=== PATIENT | male | born 1995 | race Hispanic/Latino ===

== ENCOUNTER 2018-08-22 15:42 | Emergency (ER) | payer MEDICAID, OTHER ==
[2018-08-22] MEDS ORDERED: METHYLPREDNISOLONE SOD SUCC 125MG/2ML VIAL ONE (16:04)
[2018-08-22] MEDS ORDERED: IPRATROPIUM/ALBUTEROL SULFATE 3 ML SOLUTION IH ONE ×2 (16:19→16:38)
[2018-08-22 16:37] LABS: RAPID GROUP A STREP NEGATIVE (NEGATIVE)
== END 2018-08-22 17:07 | disposition home or self-care (01) ==
LOC: EDH 15:42
DX: J18.9 Pneumonia, unspecified organism (principal); J11.1 Influenza due to unidentified influenza virus with other respiratory manifestations; Z72.0 Tobacco use
CPT/HCPCS: 71046; 87804 ×2; 87880; 94640 ×2; 96372; 99285; J2930

== ENCOUNTER 2019-01-30 07:53 | Emergency (ER) | payer SELFPAY ==
[2019-01-30] MEDS ORDERED: PREDNISONE 20 MG TABLET ONE (09:07)
[2019-01-30] MEDS ORDERED: IBUPROFEN 600 MG TABLET ONE (09:07)
[2019-01-30] MEDS ORDERED: IPRATROPIUM/ALBUTEROL SULFATE 3 ML SOLUTION IH ONE (09:13)
== END 2019-01-30 09:27 | disposition home or self-care (01) ==
LOC: EDH 07:53
DX: J20.9 Acute bronchitis, unspecified (principal); Z72.0 Tobacco use
CPT/HCPCS: 71046; 87804; 94640

== ENCOUNTER 2021-03-29 11:16 | Emergency (ER) | payer OTHER | END 2021-03-29 13:47 | disposition home or self-care (01) | LOC: EDH 11:16 | DX: S00.03XA Contusion of scalp, initial encounter (principal); Z72.0 Tobacco use; W22.8XXA Striking against or struck by other objects, initial encounter; Y93.89 Activity, other specified; Y92.89 Other specified places as the place of occurrence of the external cause; Y99.8 Other external cause status | CPT/HCPCS: 70450; 72040 ==

== ENCOUNTER 2021-12-03 23:07 | Emergency (ER) | payer OTHER ==
[~2021-12-03] VITALS: Ht 167.6 cm; Wt 106.6 kg
[2021-12-03] MEDS ORDERED: IBUPROFEN 600 MG TABLET PO ONE (23:30)
[2021-12-04] MEDS ORDERED: DEXAMETHASONE 4 MG TAB ONE (00:01)
[2021-12-04 00:13] VITALS: BP 125/79
[2021-12-04] MEDS ORDERED: ZINC50TA71 PO (00:16)
[2021-12-04] MEDS ORDERED: ACET-2123 PO (00:16)
[2021-12-04] MEDS ORDERED: ASCO500V11 IJ (00:16)
[2021-12-04] MEDS ORDERED: ASCO500T10 PO (00:26)
== END 2021-12-04 00:33 | disposition home or self-care (01) ==
LOC: EDH 23:07
DX: U07.1 COVID-19 (principal); J06.9 Acute upper respiratory infection, unspecified
CPT/HCPCS: 87635; 87804 ×2; 87880; 99283; C9803; J8540

== ENCOUNTER 2025-01-27 11:13 | Emergency (ER) | payer SELFPAY ==
[~2025-01-27] VITALS: Ht 167.6 cm; Wt 99.8 kg
[~2025-01-27 11:13] MED LIST: ACET-2123 PO; ASCO500T10 PO; ASCO500V11 IJ; ZINC50TA71 PO
[2025-01-27] MEDS: ondanSETRON 4MG INJ IVP ONE (12:32)
[2025-01-27] MEDS: 0.9%NACL 1000ML 1,000 ML IV ONE (12:33)
[2025-01-27] MEDS: morPHINE 4 MG SYG IVP ONE (12:33)
[2025-01-27 12:53] LABS: BASOPHILS # (AUTO) 0.03 K/uL (0.00-0.20); BASOPHILS % (AUTO) 0.2 % (0.0-5.0); EOSINOPHILS # (AUTO) 0.08 K/uL (0.00-0.70); EOSINOPHILS % (AUTO) 0.7 % (0.0-8.0); HEMATOCRIT 48.3 % (42-54); IMMATURE GRANULOCYTE ABSOLUTE 0.03 K/uL (0-1); LYMPHOCYTES # (AUTO) 2.1 K/uL (1.0-4.8); LYMPHOCYTES % (AUTO) 17.1 % (21.0-51.0); MEAN CORPUSCULAR HEMOGLOBIN 29.4 pg (27.0-33.0); MEAN CORPUSCULAR VOLUME 86.6 fL (79-99); MONOCYTES # (AUTO) 0.9 K/uL (0.1-1.0); NEUTROPHILS # (AUTO) 9.2 K/uL (1.8-7.7); NEUTROPHILS % (AUTO) 74.8 % (40.0-77.0); PLATELET COUNT (AUTO) 284 K/uL (130-400); RED BLOOD CELL COUNT(AUTO) 5.58 MIL/uL (4.50-6.20); RED CELL DISTRIBUTION WIDTH 12.6 % (11.0-15.5); WHITE BLOOD COUNT (AUTO) 12.3 K/uL (4.8-10.8)
[2025-01-27 12:58] LABS: POTASSIUM 3.3 mmol/L (3.5-5.1)
[2025-01-27 13:02] LABS: ALBUMIN 4.3 g/dL (3.5-5.0); BILIRUBIN,DIRECT 0.2 mg/dL (0.0-0.3); BILIRUBIN,TOTAL 1.3 mg/dL (0.2-1.0); TOTAL PROTEIN, SERUM 8.6 g/dL (6.0-8.3)
--- NOTE | 2025-01-27 13:08 | ERN ---
ED Note History of Present Illness Stated Complaint: ABD PAIN X 3 DAYS Chief Complaint: Abdominal Pain Time Seen by MD: 11:27 Dictation: 29-year-old male presents to the ED for evaluation of left lower quadrant abdominal pain onset 3 days ago. Patient reports abdominal cramping, blood in stool, constipation and states his pain radiates to his lower back. Patient reports history of IBS stating that he usually has flare-ups but not as bad as today. Patient has not been seen by GI. Allergies: Coded Allergies: No Known Allergies (Unverified Allergy, Unknown, 03/29/21) Home Meds Active Scripts Dicyclomine HCl (Bentyl) 20 Mg Tab, 1 TAB PO TID for irritable bowel symptoms for 10 Days, #30 TAB 0 Refills Prov:WALE MACARIO MD 01/27/25 Metronidazole (Flagyl) 375 Mg Capsule, 1 CAP PO BID for 7 Days, #14 CAP 0 Refills Prov:WALE MACARIO MD 01/27/25 Ondansetron (Ondansetron Odt) 4 Mg Tab.rapdis, 1 TAB PO Q6HPRN PRN for naus ea/vomiting for 4 Days, #16 TAB 0 Refills Prov:WALE MACARIO MD 01/27/25 Ascorbic Acid (Ascorbic Acid) 500 Mg Tablet, 500 MG PO DAILY, #15 TAB Prov:BRIA GUEVARA Jr. [facility] 12/04/21 Zinc (Zinc) 50 Mg Tablet, 50 MG PO BID, #30 TAB Prov:BRIA GUEVARA Jr. [facility] 12/04/21 Ascorbic Acid (Ascorbic Acid) 500 Mg/1 Ml Vial, 500 MG IJ DAILY, #15 VIAL Prov:BRIA GUEVARA Jr. [facility] 12/04/21 Acetaminophen (Acetaminophen Extra Strength) 500 Mg Tablet, 500 MG PO Q4HPRN, #60 TAB Prov:BRIA GUEVARA Jr. [facility] 12/04/21 Past Medical History Past Medical History: IBS Additional Past Medical Hx: Obesity Surgical History: None Social History: Smokers, Drugs, ETOH, Lives with family Review of System Dictation Constitutional: Negative for fever,chills, and weight loss Eyes: Negative for injury, pain,redness, and discharge ENT: Negative for injury,pain or swelling Cardiovascular: Negative for chest pain, palpitations, and edema Respiratory: Negative for shortness of breath, cough, and wheezing, Abdomen/GI: Positive for abdominal pain, cramping, blood in stool, constipation but denies any vomiting Back: Negative for injury and pain : Negative for injury, bleeding and discharge MS/Extremity: Negative for injury and deformity Skin: Negative for rash, and discoloration Neuro: Negative for headache, weakness, numbness, tingling, and seizure Psych: Negative for suicide ideation, homicidal ideation, and hallucinations Initial Vital Sign VS Vital Signs Date Time Temp Pulse Resp B/P (MAP) Pulse Ox O2 Delivery O2 Flow Rate FiO2 01/27/25 11:44 98.2 111 20 127/88 99 Room Air Physical Exam Dictation General: awake, alert, NAD Head/Face: Normocephalic, atraumatic Eyes: PERRL, EOMI, vision at baseline ENT: oral cavity clear, TMs clear, no signs of infection Neck: Trachea midline, supple, no nuchal rigidity Cardiovascular: RRR, normal S1/S2, No MRGs, no JVD Respiratory: CTAB, no respiratory distress, No rales or wheezes Abdomen: Left lower quadrant tenderness, non-distended, normal bowel sounds, no guarding or rebound. Skin: Warm, dry, normal turgor, no rash MS/Extremity: Pulses equal, no cyanosis, neurovascular intact, FROM Neuro: COAx4, GCS 15, strength 5/5, CN 2-12 intact, normal cerebellar exam, normal gait, Psych: Normal behavior, mood, and affect normal Results (Laboratory/Radiology) Laboratory/Radiology Laboratory Tests Test 01/27/25 12:13 01/27/25 13:58 White Blood Count 12.3 K/uL (4.8-10.8) H Red Blood Count 5.58 MIL/uL (4.50-6.20) Hemoglobin 16.4 g/dL (14.0-18.0) Hematocrit 48.3 % (42-54) Mean Corpuscular Volume 86.6 fL (79-99) Mean Corpuscular Hemoglobin 29.4 pg (27.0-33.0) Mean Corpuscular Hemoglobin Concent 34.0 g/dL (32.0-36.0) Red Cell Distribution Width 12.6 % (11.0-15.5) Platelet Count 284 K/uL (130-400) Mean Platelet Volume 11.0 fL (7.5-10.5) H Immature Granulocyte % (Auto) 0.2 % (0-1) Neutrophils (%) (Auto) 74.8 % (40.0-77.0) Lymphocytes (%) (Auto) 17.1 % (21.0-51.0) L Monocytes (%) (Auto) 7.0 % (3.0-13.0) Eosinophils (%) (Auto) 0.7 % (0.0-8.0) Basophils (%) (Auto) 0.2 % (0.0-5.0) Neutrophils # (Auto) 9.2 K/uL (1.8-7.7) H Lymphocytes # (Auto) 2.1 K/uL (1.0-4.8) Monocytes # (Auto) 0.9 K/uL (0.1-1.0) Eosinophils # (Auto) 0.08 K/uL (0.00-0.70) Basophils # (Auto) 0.03 K/uL (0.00-0.20) Absolute Immature Granulocyte (auto 0.03 K/uL (0-1) Nucleated Red Blood Cells 0.0 % (0.0-0.19) Sodium Level 138 mmol/L (136-145) Potassium Level 3.3 mmol/L (3.5-5.1) L Chloride Level 101 mmol/L (101-111) Carbon Dioxide Level 29 mmol/L (21-32) Blood Urea Nitrogen 14 mg/dL (7-18) Creatinine 1.0 mg/dL (0.5-1.3) Glomerular Filtration Rate Calc 106 mL/min (>90) Random Glucose 109 mg/dL (70-105) H Total Calcium 9.7 mg/dL (8.5-10.1) Total Bilirubin 1.3 mg/dL (0.2-1.0) H Direct Bilirubin 0.2 mg/dL (0.0-0.3) Aspartate Amino Transf (AST/SGOT) 23 U/L (10-37) Alanine Aminotransferase (ALT/SGPT) 55 U/L (12-78) Alkaline Phosphatase 74 U/L (50-136) Total Protein 8.6 g/dL (6.0-8.3) H Albumin 4.3 g/dL (3.5-5.0) Lipase 44 U/L (16-77) Urine Color YELLOW (YELLOW) Urine Appearance CLEAR (CLEAR) Urine pH 6.0 (5.0-8.0) Urine Specific [place] 1.018 (1.001-1.031) Urine Protein NEGATIVE mg/dL (NEGATIVE) Urine Glucose (UA) NEGATIVE mg/dL (NEGATIVE) Urine Ketones 40 mg/dL (NEGATIVE) H Urine Occult Blood SMALL (NEGATIVE) H Urine Nitrate NEGATIVE (NEGATIVE) Urine Bilirubin NEGATIVE mg/dL (NEGATIVE) Urine Urobilinogen 0.2 mg/dL (0.2-1.0) Urine Leukocyte Esterase NEGATIVE Jesús/uL Urine RBC 11-25 /HPF (0-1) H Urine WBC 0-1 /HPF (0-1) Urine Squamous Epithelial Cells RARE /HPF (0-2) Urine Bacteria Few /HPF (None Seen) Labs Reviewed?: Yes CT Scan Comment: REASON: LLQ pain ORDERING PHYSICIAN: WALE MACARIO MD PROCEDURE: ABD PELVWO - CT ABD/PEL WO CON RENAL/APPY CT ABD/PEL WO CON RENAL/APPY HISTORY: Abdominal pain COMPARISON: None TECHNIQUE: Multiple sequential axial images of the abdomen and pelvis were obtained from the dome of the diaphragm through symphysis pubis. Patient was not given contrast through intravenous route. Oral contrast was not given. FINDINGS: No pleural effusion is seen bilaterally. There is no evidence of parenchymal disease or pulmonary nodule of the visualized lower lungs. Degenerative changes of the thoracolumbar spine are present. The heart is not enlarged. The liver is enlarged with fatty changes measuring 19. The study is limited due to lack of intravenous contrast. Liver, spleen, adrenal glands and pancreas are unremarkable. There is no evidence of hydronephrosis bilaterally. No evidence of renal stone is seen. Fecal material is seen in the colon. There are normal size retroperitoneal and mesenteric lymph nodes. No ascites is seen. Atherosclerotic changes are present. There is diverticulosis. There is sigmoid colon wall thickening with adjacent fat stranding suggestive of acute sigmoid diverticulitis. No focal abscess is seen. Pelvic sidewalls are symmetric bilaterally. Bladder is poorly distended. IMPRESSION: 1. There is diverticulosis. There is sigmoid colon wall thickening with adjacent fat stranding suggestive of acute sigmoid diverticulitis. No focal abscess is seen. CT was performed with one or more following dose reduction techniques: automated exposure control, adjustment of the mA and kv according to patient's size, or use of a iterative reconstruction technique. DICTATED BY: CHERRY ANTHONY MD DATE: 01/27/25 1422 ED Course ED Course Orders Procedure Category Date Status Time Cbc With Differential LAB 01/27/25 Complete 11:56 Hepatic Function Panel LAB 01/27/25 Complete 11:56 Basic Metabolic Panel LAB 01/27/25 Complete 11:56 Lipase LAB 01/27/25 Complete 11:56 Urinalysis Profile LAB 01/27/25 Complete 11:56 Morphine 4mg Syg PHA 01/27/25 Complete (Morphine 4mg Syg) 12:30 Ondansetron 4mg Inj PHA 01/27/25 Complete (Zofran 4mg Inj) 12:30 0.9%Nacl 1000ml (Ns PHA 01/27/25 Complete 1000ml) 12:30 Ct Abd/Pel Wo Con CT 01/27/25 Resulted Renal/Appy 12:18 Ceftriaxone 1g Vial PHA 01/27/25 Complete (Rocephine 1g Inj) 15:30 Ketorolac PHA 01/27/25 In Process Tromethamine 15mg/Ml 16:00 Ketorolac PHA 01/27/25 Complete Tromethamine 15mg/Ml 15:44 Current Medications Medications (Trade) Dose Ordered Sig/Miguel Angel Route PRN Reason Start Time Stop Time Status Last Admin Dose Admin Ceftriaxone Sodium (ROCEphine 1G INJ) 1 gm ONCE ONCE IVPB 01/27/25 15:30 01/27/25 15:31 DC 01/27/25 15:25 Ketorolac Tromethamine (toRADol) 15 mg ONCE ONCE IV 01/27/25 16:00 01/27/25 16:01 Ketorolac Tromethamine (toRADol) 15 mg STK-MED ONCE .ROUTE 01/27/25 15:44 01/27/25 15:44 DC Morphine Sulfate (morPHINE 4MG SYG) 4 mg ONCE ONCE IVP 01/27/25 12:30 01/27/25 12:31 DC 01/27/25 12:33 Ondansetron HCl (zoFRAN 4MG INJ) 4 mg ONCE ONCE IVP 01/27/25 12:30 01/27/25 12:31 DC 01/27/25 12:32 Sodium Chloride 1,000 ml @ 0 mls/hr ONCE ONCE IV 01/27/25 12:30 01/27/25 12:31 DC 01/27/25 12:33 Vital Signs Date Time Temp Pulse Resp B/P (MAP) Pulse Ox O2 Delivery O2 Flow Rate FiO2 01/27/25 11:44 98.2 111 20 127/88 99 Room Air Medical Decision Making MDM MDM: Differential diagnosis: IBS, abdominal pain, diverticulitis Rationale: Tests considered and ordered secondary to shared decision making include: labs and radiology Previous outside records reviewed: Old ER visits. Risk of complication and/or morbidity or mortality of patient management: None Medications-Per medication reconciliation Need for hospitalization: Patient does not meet criteria for hospitalization. Need for emergency major/minor surgery: No There are no social concerns with this patient. Prescription drug management Prescriptions will include symptomatic care Patient's prior external medical records from other ER visits were reviewed by me as indicated. Prior testing and results from previous visits were reviewed. Prior tests were taken into account with medical decision making and resource utilization, independent historian/historians were used to obtain complete medical history. I independently interpreted the test that were performed, results were reviewed by me and considered findings on radiology if ordered. DX & DISP Disposition: Discharge Departure Impression: Primary Impression: Acute diverticulitis Condition: Stable Scripts Dicyclomine HCl (Bentyl) 20 Mg Tab 1 TAB PO TID for irritable bowel symptoms for 10 Days, #30 TAB 0 Refills Prov: WALE MACARIO MD 01/27/25 Metronidazole (Flagyl) 375 Mg Capsule 1 CAP PO BID for 7 Days, #14 CAP 0 Refills Prov: WALE MACARIO MD 01/27/25 Ondansetron (Ondansetron Odt) 4 Mg Tab.rapdis 1 TAB PO Q6HPRN PRN for nausea/vomiting for 4 Days, #16 TAB 0 Refills Prov: WALE MACARIO MD 01/27/25 Referrals: NONE (PCP) WALE MACARIO MD Jan 27, 2025 13:08
[2025-01-27 14:10] LABS: APPEARANCE,URINE CLEAR (CLEAR); BILIRUBIN,URINE NEGATIVE (NEGATIVE); COLOR,URINE YELLOW (YELLOW); GLUCOSE, URINE (UA) NEGATIVE (NEGATIVE); KETONES,URINE 40 mg/dL (NEGATIVE); LEUKOCYTE ESTERASE ,URINE NEGATIVE Leu/uL (NEGATIVE); NITRATE,URINE NEGATIVE (NEGATIVE); OCCULT BLOOD,URINE SMALL (NEGATIVE); PROTEIN,URINE NEGATIVE (NEGATIVE); UROBILINOGEN,URINE 0.2 mg/dL (0.2-1.0)
[2025-01-27 14:14] LABS: ADD UA MICROSCOPIC YES
[2025-01-27 14:17] LABS: MUCUS,URINE RARE LPF (None Seen); SQUAMOUS EPITHELIAL CELL,UR RARE /HPF (0-2); WBC,URINE 0-1 /HPF (0-1)
[2025-01-27 14:25] LABS: BACTERIA,URINE Few /HPF (None Seen)
--- NOTE | 2025-01-27 14:26 | HMCIMG ---
CT ABD/PEL WO CON RENAL/APPY HISTORY: Abdominal pain COMPARISON: None TECHNIQUE: Multiple sequential axial images of the abdomen and pelvis were obtained from the dome of the diaphragm through symphysis pubis. Patient was not given contrast through intravenous route. Oral contrast was not given. FINDINGS: No pleural effusion is seen bilaterally. There is no evidence of parenchymal disease or pulmonary nodule of the visualized lower lungs. Degenerative changes of the thoracolumbar spine are present. The heart is not enlarged. The liver is enlarged with fatty changes measuring 19. The study is limited due to lack of intravenous contrast. Liver, spleen, adrenal glands and pancreas are unremarkable. There is no evidence of hydronephrosis bilaterally. No evidence of renal stone is seen. Fecal material is seen in the colon. There are normal size retroperitoneal and mesenteric lymph nodes. No ascites is seen. Atherosclerotic changes are present. There is diverticulosis. There is sigmoid colon wall thickening with adjacent fat stranding suggestive of acute sigmoid diverticulitis. No focal abscess is seen. Pelvic sidewalls are symmetric bilaterally. Bladder is poorly distended. IMPRESSION: 1. There is diverticulosis. There is sigmoid colon wall thickening with adjacent fat stranding suggestive of acute sigmoid diverticulitis. No focal abscess is seen. CT was performed with one or more following dose reduction techniques: automated exposure control, adjustment of the mA and kv according to patient's size, or use of a iterative reconstruction technique.
[2025-01-27] MEDS: cefTRIAXone 1G VIAL IVPB ONE (15:25)
[2025-01-27] MEDS ORDERED: DICY20TA2 PO (15:45)
[2025-01-27] MEDS ORDERED: METR375C2 PO (15:45)
[2025-01-27] MEDS ORDERED: ONDA-243 PO (15:45)
[2025-01-27] MEDS: ketOROlac 15MG/ML VIAL (15MG/ML) IV ONE (15:51)
[2025-01-27] MEDS: ketOROlac 15MG/ML VIAL (15MG/ML) ONE (15:52)
[2025-01-27 15:56] VITALS: BP 121/80; PULSE 88; RESP 20; TEMP 98.3; O2SAT 99
== END 2025-01-27 16:10 | disposition home or self-care (01) ==
LOC: EDH 11:13
DX: K57.32 Diverticulitis of large intestine without perforation or abscess without bleeding (principal); E66.9 Obesity, unspecified; F17.200 Nicotine dependence, unspecified, uncomplicated; Z68.35 Body mass index [BMI] 35.0-35.9, adult; Z79.899 Other long term (current) drug therapy
CPT/HCPCS: 99285; 74176; 96365; 96375; 96361; 80076; 80048; 83690; 85025; 81001; 36415; J1885; J7030; J0696; J2405; J2270

== ENCOUNTER 2025-09-06 12:03 | Inpatient (IN) | payer SELFPAY ==
[~2025-09-06] VITALS: Ht 167.6 cm; Wt 116.6 kg
[~2025-09-06 12:03] MED LIST changes: +DICY20TA2 PO; +METR375C2 PO; +ONDA-243 PO
--- NOTE | 2025-09-06 12:14 | ERN ---
ED Note History of Present Illness Stated Complaint: LLQ PAIN, NAUSEA Chief Complaint: Abdominal Pain Time Seen by MD: 12:05 Dictation: PATIENT IS A 30-YEAR-OLD MALE COMING IN TODAY WITH COMPLAINTS OF LEFT UPPER AND LOWER QUADRANT PAIN TENDERNESS WITH NAUSEA HE HAS HAD FOR FIVE DAYS. NO FEVER NO CHILLS NO CHEST PAIN NO BACK PAIN. HE STATES HE HAS NOT HAD A PRIMARY CARE DOCTOR AND DID NOT GO TO THE HOSPITAL TODAY BECAUSE HE WAS TOO BUSY WORKING. Allergies: Coded Allergies: No Known Allergies (Unverified Allergy, Unknown, 03/29/21) Home Meds Active Scripts Dicyclomine HCl (Bentyl) 20 Mg Tab, 1 TAB PO TID for irritable bowel symptoms for 10 Days, #30 TAB 0 Refills Prov:WALE MACARIO MD 01/27/25 Metronidazole (Flagyl) 375 Mg Capsule, 1 CAP PO BID for 7 Days, #14 CAP 0 Refills Prov:WALE MACARIO MD 01/27/25 Ondansetron (Ondansetron Odt) 4 Mg Tab.rapdis, 1 TAB PO Q6HPRN PRN for nausea/vomiting for 4 Days, #16 TAB 0 Refills Prov:WALE MACARIO MD 01/27/25 Ascorbic Acid (Ascorbic Acid) 500 Mg Tablet, 500 MG PO DAILY, #15 TAB Prov:BRIA GUEVARA Jr. [facility] 12/04/21 Zinc (Zinc) 50 Mg Tablet, 50 MG PO BID, #30 TAB Prov:BRIA GUEVARA Jr. [facility] 12/04/21 Ascorbic Acid (Ascorbic Acid) 500 Mg/1 Ml Vial, 500 MG IJ DAILY, #15 VIAL Prov:BRIA GUEVARA Jr. [facility] 12/04/21 Acetaminophen (Acetaminophen Extra Strength) 500 Mg Tablet, 500 MG PO Q4HPRN, #60 TAB Prov:BRIA GUEVARA Jr. [facility] 12/04/21 Past Medical History Past Medical History: Diverticulosis, IBS Additional Past Medical Hx: Obesity Surgical History: None Social History: Smokers, Drugs, ETOH, Lives with family RN Note Reviewed/Agreed w/PFSH: Yes Review of System Dictation CONSTITUTIONAL: NEGATIVE EXCEPT FOR HPI HEAD/FACE: NEGATIVE EXCEPT FOR HPI EENT: NEGATIVE EXCEPT FOR HPI RESPIRATORY: NEGATIVE EXCEPT FOR HPI GASTROINTESTINAL/ABDOMINAL: NEGATIVE EXCEPT FOR HPI LEFT UPPER AND LOWER QUADRANT GENITOURINARY: NEGATIVE EXCEPT FOR HPI MUSCULOSKELETAL: NEGATIVE EXCEPT FOR HPI INTEGUMENTARY: NEGATIVE EXCEPT FOR HPI NEUROLOGICAL/PSYCH: NEGATIVE EXCEPT FOR HPI HEMATOLOGIC/LYMPHATIC: NEGATIVE EXCEPT FOR HPI ALL SYSTEMS NEGATIVE, EXCEPT NOTED ABOVE. 13 POINT REVIEW OF SYSTEMS ASSESSED AND ALL NEGATIVE EXCEPT FOR ABOVE. Initial Vital Sign VS Vital Signs Date Time Temp Pulse Resp B/P (MAP) Pulse Ox O2 Delivery O2 Flow Rate FiO2 09/06/25 12:04 98.2 92 16 120/87 97 Room Air 0 09/06/25 13:22 21 Physical Exam Dictation VITAL SIGNS REVIEWED GENERAL APPEARANCE: ALERT, ORIENTED X 3, MODERATE ACUTE DISTRESS, WELL DEV ELOPED, NOURISHED. HEAD AND FACE: NON-TRAUMATIC. EYES: PERRL, PINK CONJUNCTIVAS, EYELID NO TRAUMA, ANTERIOR CHAMBER WITH ARCUS SENILIS. EARS: PINNAS INTACT AND NO SIGNS OF TRAUMA OR ERYTHEMA EAR CANALS CLEAR AND NO DISCHARGE TM NO ERYTHEMA NOSE: NO DISCHARGE, NO BLEEDING. OROPHARYNX: MOUTH NORMAL, TONGUE PINK, PHARYNX CLEAR,NO ERYTHEMA, TONSILS NO EXUDATES, NO ABSCESSES NOTED, MUCOUS MEMBRANE MOIST NECK: SUPPLE, NON-TENDER, NO THYROMEGALY, NO MASSES, NO JVD, NO BRUITS BREAST:DEFERRED CHEST:NO TENDERNESS, NO CREPITUS, NO PARADOXICAL MOVEMENT, NO RETRACTIONS LUNGS:CLEAR, WELL-VENTILATED, SYMMETRIC, NO RALES, NO WHEEZING, NO RHONCHI, NO STRIDOR, GOOD BREATH SOUNDS BILATERALLY HEART: REGULAR RATE, REGULAR RHYTHM, NO MURMUR, NO GALLOPS VASCULAR: NO PERIPHERAL EDEMA, ABDOMEN: SOFT, POSITIVE BOWEL SOUNDS, NONDISTENDED, NO GUARDING, MODERATE LEFTOVER AND LOWER QUADRANT PAIN TENDERNESS. RECTAL: DEFERRED GENITAL: DEFERRED NEUROLOGICAL: NORMAL SPEECH, MOTOR FUNCTION INTACT, SENSORY FUNCTION INTACT MUSCULOSKELETAL: NECK NONTENDER, FULL RANGE OF MOTION, BACK NONTENDER, FULL RANGE OF MOTION, EXTREMITIES: NONTENDER, FULL RANGE OF MOTION SKIN: COLOR PINK, DRY, NO TURGOR, NO RASH, NO LACERATIONS, NO ABRASIONS, NO CONTUSIONS. LYMPHATIC: DEFERRED Results (Laboratory/Radiology) Laboratory/Radiology Laboratory Tests Test 09/06/25 12:36 09/06/25 13:25 09/06/25 14:15 White Blood Count 13.3 K/uL (4.8-10.8) H Red Blood Count 4.79 MIL/uL (4.50-6.20) Hemoglobin 14.4 g/dL (14.0-18.0) Hematocrit 42.1 % (42-54) Mean Corpuscular Volume 87.9 fL (79-99) Mean Corpuscular Hemoglobin 30.1 pg (27.0-33.0) Mean Corpuscular Hemoglobin Concent 34.2 g/dL (32.0-36.0) Red Cell Distribution Width 12.1 % (11.0-15.5) Platelet Count 297 K/uL (130-400) Mean Platelet Volume 10.4 fL (7.5-10.5) Immature Granulocyte % (Auto) 0.4 % (0-1) Neutrophils (%) (Auto) 77.2 % (40.0-77.0) H Lymphocytes (%) (Auto) 15.4 % (21.0-51.0) L Monocytes (%) (Auto) 5.2 % (3.0-13.0) Eosinophils (%) (Auto) 1.4 % (0.0-8.0) Basophils (%) (Auto) 0.4 % (0.0-5.0) Neutrophils # (Auto) 10.3 K/uL (1.8-7.7) H Lymphocytes # (Auto) 2.1 K/uL (1.0-4.8) Monocytes # (Auto) 0.7 K/uL (0.1-1.0) Eosinophils # (Auto) 0.19 K/uL (0.00-0.70) Basophils # (Auto) 0.05 K/uL (0.00-0.20) Absolute Immature Granulocyte (auto 0.05 K/uL (0-1) Nucleated Red Blood Cells 0.0 % (0.0-0.19) Sodium Level 142 mmol/L (136-145) Potassium Level 4.2 mmol/L (3.5-5.1) Chloride Level 105 mmol/L (101-111) Carbon Dioxide Level 28 mmol/L (21-32) Blood Urea Nitrogen 12 mg/dL (7-18) Creatinine 0.9 mg/dL (0.5-1.3) Glomerular Filtration Rate Calc 119 mL/min (>90) Random Glucose 115 mg/dL (70-105) H Total Calcium 9.1 mg/dL (8.5-10.1) Lipase 43 U/L (16-77) Urine Color YELLOW (YELLOW) Urine Appearance CLEAR (CLEAR) Urine pH 6.0 (5.0-8.0) Urine Specific [place] 1.039 (1.001-1.031) Urine Protein 20 mg/dL (NEGATIVE) H Urine Glucose (UA) NEGATIVE mg/dL (NEGATIVE) Urine Ketones NEGATIVE mg/dL (NEGATIVE) Urine Occult Blood MODERATE (NEGATIVE) H Urine Nitrate NEGATIVE (NEGATIVE) Urine Bilirubin NEGATIVE mg/dL (NEGATIVE) Urine Urobilinogen 0.2 mg/dL (0.2-1.0) Urine Leukocyte Esterase NEGATIVE Jesús/uL Urine RBC 26-50 /HPF (0-1) H Urine WBC 0-1 /HPF (0-1) Urine Bacteria None /HPF (None Seen) Lactic Acid Level 1.2 mmol/L (0.8-2.5) Labs Reviewed?: Yes ED Course ED Course Orders Procedure Category Date Status Time Cbc With Differential LAB 09/06/25 Complete 12:12 Urinalysis Profile LAB 09/06/25 Complete 12:12 Ct Abdomen/Pelvis CT 09/06/25 Resulted W/Contrast 12:12 0.9%Nacl 1000ml (Ns PHA 09/06/25 Complete 1000ml) 12:30 Ondansetron 4mg Inj PHA 09/06/25 Complete (Zofran 4mg Inj) 12:30 Lipase LAB 09/06/25 Complete 12:12 Basic Metabolic Panel LAB 09/06/25 Complete 12:12 Morphine 4mg Syg PHA 09/06/25 Complete (Morphine 4mg Syg) 12:30 Iohexol (Omnipaque) PHA 09/06/25 Complete 13:18 Zosyn 3.375gm+Ns 50ml PHA 09/06/25 Complete (Zosyn 3.375gm+Ns 14:00 Blood Cult TANYA 09/06/25 In Process 14:00 Lactic Acid LAB 09/06/25 Complete 14:00 Morphine 4mg Syg PHA 09/06/25 Complete (Morphine 4mg Syg) 14:30 Current Medications Medications (Trade) Dose Ordered Sig/Miguel Angel Route PRN Reason Start Time Stop Time Status Last Admin Dose Admin Iohexol (Omnipaque) 35,000 mg STK-MED ONCE IV 09/06/25 13:18 09/06/25 13:18 DC Morphine Sulfate (morPHINE 4MG SYG) 2 mg ONCE ONCE IVP 09/06/25 12:30 09/06/25 12:31 DC 09/06/25 13:53 Morphine Sulfate (morPHINE 4MG SYG) 2 mg ONCE ONCE IVP 09/06/25 14:30 09/06/25 14:31 DC Ondansetron HCl (zoFRAN 4MG INJ) 4 mg ONCE ONCE IVP 09/06/25 12:30 09/06/25 12:31 DC 09/06/25 13:53 Piperacillin Sod/ Tazobactam Sod (Zosyn 3.375gm+NS 50ml) 3.375 gm ONCE STAT IVPB 09/06/25 14:00 09/06/25 14:03 DC 09/06/25 14:24 Sodium Chloride 1,000 ml @ 0 mls/hr ONCE ONCE IV 09/06/25 12:30 09/06/25 12:31 DC 09/06/25 13:53 Vital Signs Date Time Temp Pulse Resp B/P (MAP) Pulse Ox O2 Delivery O2 Flow Rate FiO2 09/06/25 13:22 98.2 80 16 126/82 98 Room Air* 0 21 09/06/25 12:04 98.2 92 16 120/87 97 Room Air 0 1430/patient states pain is mildly improved with morphine however continues to have pain. He does not feel safe going home since this is the 2nd time he has had diverticulitis and does not have his insurance until the end of the week. I we will admit patient for intractable pain diverticulitis and have him follow u [id number]/SPOKE WITH ANSELMO MAK HOSPITALIST AND REVIEWED CT LABS AND INTERVENTIONS FOR PAIN SHE AGREED TO ADMIT PATIENT Medical Decision Making MDM MDM: Differential diagnosis: Appendicitis/diverticulitis this IBS life Crohn's disease/electrolyte imbalance/dehydration/UTI Rationale: Tests considered and ordered secondary to shared decision making incl ude: labs, and radiology Previous outside records reviewed: Old ER visits. Risk of complication and/or morbidity or mortality of patient management: None Medications-Per medication reconciliation Need for hospitalization: Patient does meet criteria for hospitalization. Pain management IV antibiotics possible follow up with surgery Need for emergency major/minor surgery: No There are no social concerns with this patient. Prescription drug management Prescriptions will include symptomatic care Patient's prior external medical records from other ER visits were reviewed by me as indicated. Prior testing and results from previous visits were reviewed. Prior tests were taken into account with medical decision making and resource utilization, independent historian/historians were used to obtain complete medical history. I independently interpreted the test that were performed, results were reviewed by me and considered findings on radiology if ordered. Medical management and examination interpretation discussions were had by me with other qualified healthcare professionals as indicated for the patient's care. DX & DISP Disposition: Inpatient Decision to Admit Time: 14:30 Departure Impression: Primary Impression: Acute diverticulitis Additional Impressions: Intractable abdominal pain, Hyperglycemia Condition: Stable Referrals: SELF,REFERRAL (PCP) Time of Disposition: 14:31 I have reviewed the case, and I agree with, Diagnosis and Plan TREVIN JULIAN NP Sep 06, 2025 12:14
[2025-09-06 12:46] LABS: IMMATURE GRANULOCYTE ABSOLUTE 0.05 K/uL (0-1); NUCLEATED RED BLOOD CELLS 0.0 % (0.0-0.19); PLATELET COUNT (AUTO) 297 K/uL (130-400); RED BLOOD CELL COUNT(AUTO) 4.79 MIL/uL (4.50-6.20); RED CELL DISTRIBUTION WIDTH 12.1 % (11.0-15.5); WHITE BLOOD COUNT (AUTO) 13.3 K/uL (4.8-10.8)
--- NOTE | 2025-09-06 12:51 | NUR ---
CT DELAY DUE TO PT IN LOBBY ATT
[2025-09-06 12:52] LABS: CREATININE 0.9 mg/dL (0.5-1.3); GLOMERULAR FILTR. RATE CALC 119.0 mL/min (>90); GLUCOSE,RANDOM 115.0 mg/dL (70-105); SODIUM SERUM 142.0 mmol/L (136-145); UREA NITROGEN, BLOOD 12.0 mg/dL (7-18)
[2025-09-06] MEDS ORDERED: IOHEXOL 350 MG/ML 100ML INFUS..BTL IV ONE (13:18)
[2025-09-06 13:33] LABS: APPEARANCE,URINE CLEAR (CLEAR); GLUCOSE, URINE (UA) NEGATIVE (NEGATIVE); LEUKOCYTE ESTERASE ,URINE NEGATIVE Leu/uL (NEGATIVE); NITRATE,URINE NEGATIVE (NEGATIVE); OCCULT BLOOD,URINE MODERATE (NEGATIVE)
[2025-09-06 13:35] LABS: ADD UA MICROSCOPIC YES
[2025-09-06] MEDS: 0.9%NACL 1000ML 1,000 ML IV ONE (13:53)
--- NOTE | 2025-09-06 13:53 | HMCIMG ---
EXAM: CT Abdomen and Pelvis with IV contrast CLINICAL HISTORY: SEVERE LEFT UPPER AND LOWER QUADRANT PAIN TENDERNESS. TECHNIQUE: Axial computed tomography images of the abdomen and pelvis with intravenous contrast. CONTRAST: with intravenous contrast. COMPARISON: None provided. FINDINGS: LUNG BASES: The lung bases appear clear. No pleural effusions are seen. LIVER: Fatty liver. GALLBLADDER AND BILE DUCTS: The gallbladder appears within normal limits. No radioopaque gallstones are seen. No biliary ductal dilatation is evident. PANCREAS: Unremarkable. SPLEEN: Unremarkable. ADRENAL GLANDS: Unremarkable. KIDNEYS, URETERS, AND BLADDER: The kidneys appear within normal limits. There is no hydronephrosis or hydroureter. No urinary calculi are seen. STOMACH AND BOWEL: Marked inflammatory changes in the left lower quadrant adjacent to inflamed diverticula in the proximal sigmoid colon, consistent with acute sigmoid diverticulitis. APPENDIX: Normal appendix. PERITONEUM: No free fluid. No free air. LYMPH NODES: No lymphadenopathy is evident. REPRODUCTIVE: Unremarkable as visualized. VASCULATURE: No evidence of abdominal aortic aneurysm. BONES: No aggressive appearing osseous lesion. No acute osseous pathology evident. IMPRESSION: Marked inflammatory changes in the left lower quadrant adjacent to inflamed diverticula in the proximal sigmoid colon, consistent with acute sigmoid diverticulitis. No free air, free fluid or fluid collection. /[place]
[2025-09-06] MEDS: ZOSYN 3.375GM +NS 50ML IVPB STA (14:24)
--- NOTE | 2025-09-06 14:51 | NUR ---
attempted to contact dr fish office at this time
--- NOTE | 2025-09-06 14:53 | NUR ---
abe consult completed
--- NOTE | 2025-09-06 15:30 | HP ---
[facility] HISTORY AND PHYSICAL Date of Service: Sep 06, 2025 Time of Service: 15:19 HISTORY OF PRESENT ILLNESS: [The patient is a 30-year-old male with a past medical history significant for diverticulitis, previously admitted to [facility] last month. He reports completing his prescribed antibiotic course after discharge. Approximately five days ago, he began experiencing recurrent abdominal pain localized to the left lower quadrant. Despite ongoing symptoms, he continued working due to financial constraints. Today, the pain became intolerable, prompting his visit to the emergency department. Associated symptoms include nausea (without vomiting) and anorexia. He denies fever, chills, diarrhea, constipation, hematochezia, or melena. Laboratory and Imaging Results: WBC: 13.13 x10/L (elevated) Neutrophils: 77.2% Random Glucose: 115 mg/dL CT Abdomen/Pelvis with IV contrast: Marked inflammatory changes in the left lower quadrant adjacent to inflamed diverticula in the proximal sigmoid colon, consistent with acute sigmoid diverticulitis. No free air, free fluid, or fluid collection. ED Course: Morphine 2 mg IV x2 for pain Zosyn 3.375 g IV Ondansetron 4 mg IV x1 Normal saline 1 L IV ] REVIEW OF SYSTEMS CONSTITUTIONAL: Denies fevers, chills, or night sweats. No unintentional weight loss reported. NEUROLOGICAL: Denies headache, amaurosis fugax, motor weakness, sensory deficit, vertigo/spinning sensation, gait abnormalities, or tremors. ENT: No hearing loss, otalgia, otorrhea, rhinitis, rhinorrhea, hoarseness, or sore throat. CARDIOVASCULAR: Denies any exertional angina, dyspnea on exertion, orthopnea, paroxysmal nocturnal dyspnea, palpitations, life-threatening arrhythmias, claudication. PULMONARY: Denies any shortness of breath, cough, phlegm/sputum, hemoptysis, pleuritic chest pain. SLEEP: Denies morning headaches, daytime somnolence or napping. Denies difficulty falling asleep, staying asleep, waking from sleep. Denies knowledge of snoring. GASTROINTESTINAL: Left lower quadrant abdominal pain, nausea, anorexia. No vo miting, diarrhea, constipation, hematochezia, or melena GENITOURINARY: Denies frequency, urgency, nocturia, hematuria or incontinence (Storage/Irritative symptoms.) Low urinary stream, straining to void, urinary intermittency or hesitancy, splitting of the voiding stream, terminal dribbling. ENDOCRINOLOGIC: Denies polyuria, polydipsia, polyphagia or heat/cold intolerances. HEMATOLOGIC: Denies thrombophilia/previous clots, or coagulopathy/bleeding disorders. ONCOLOGIC: Denies personal history of malignancy. DERMATOLOGIC: Denies rashes or pruritus. PSYCHIATRIC: Denies any suicidal or homicidal ideation. Denies hallucinations. PAST MEDICAL HISTORY: [Diverticulitis, morbid obesity ] PAST SURGICAL HISTORY: [Denies any surgical history ] PAST SOCIAL HISTORY: [Patient works with the [employer], smokes marijuana once in a while, decreased alcohol use to once a week on the weekends or illicit drug use reported ] FAMILY HISTORY: [Hypertension, grandfather] Coded Allergies: No Known Allergies (Unverified Allergy, Unknown, 03/29/21) PHYSICAL EXAM GENERAL APPEARANCE: The patient is awake, alert, and oriented, in no acute cardiopulmonary distress. NEUROLOGICAL: Cranial nerves II-XII grossly intact. Motor is 5/5 in bilateral upper and lower extremities proximal to distal. No sensory deficits. HEENT: Face is symmetric. Pupils are equal and reactive. Extraocular movements are intact. NECK: Supple. No JVD. No thyromegaly. No submental, submandibular, pre- /postauricular, occipital or supraclavicular lymphadenopathy. CHEST: Normal chest expansion. No Telemetry. LUNGS: Absence of any rales, rhonchi or any wheezing. CARDIOVASCULAR: Regular. S1 and S2 normal. No appreciable rubs, murmurs or gallops. ABDOMEN: Tenderness to palpation in the left lower quadrant, no rebound or guarding, no palpable masses, bowel sounds present : Deferred. No Arriaga. EXTREMITIES: Non-edematous and not cyanotic. No clubbing. Good capillary refill. SKIN: No skin breakdown. Vital Sign (Last 24 Hours) 09/06/25 14:42 Temp 98.2 Pulse 80 Resp 16 B/P (MAP) 118/80 Pulse Ox 98 O2 Delivery Room Air* O2 Flow Rate 0 FiO2 21 LABS: Laboratory: Test 09/06/25 14:15 09/06/25 13:25 09/06/25 12:36 Range/Units Lactic Acid Level 1.2 0.8-2.5 mmol/L Urine Color YELLOW YELLOW Urine Appearance CLEAR CLEAR Urine pH 6.0 5.0-8.0 Urine Specific [place] 1.039 H 1.001-1.031 Urine Protein 20 H NEGATIVE mg/dL Urine Glucose (UA) NEGATIVE NEGATIVE mg/dL Urine Ketones NEGATIVE NEGATIVE mg/dL Urine Occult Blood MODERATE H NEGATIVE Urine Nitrate NEGATIVE NEGATIVE Urine Bilirubin NEGATIVE NEGATIVE mg/dL Urine Urobilinogen 0.2 0.2-1.0 mg/dL Urine Leukocyte Esterase NEGATIVE NEGATIVE Jesús/uL Urine RBC 26-50 H 0-1 /HPF Urine WBC 0-1 0-1 /HPF Urine Bacteria None None Seen /HPF White Blood Count 13.3 H 4.8-10.8 K/uL Red Blood Count 4.79 4.50-6.20 MIL/uL Hemoglobin 14.4 14.0-18.0 g/dL Hematocrit 42.1 42-54 % Mean Corpuscular Volume 87.9 79-99 fL Mean Corpuscular Hemoglobin 30.1 27.0-33.0 pg Mean Corpuscular Hemoglobin Concent 34.2 32.0-36.0 g/dL Red Cell Distribution Width 12.1 11.0-15.5 % Platelet Count 297 130-400 K/uL Mean Platelet Volume 10.4 7.5-10.5 fL Immature Granulocyte % (Auto) 0.4 0-1 % Neutrophils (%) (Auto) 77.2 H 40.0-77.0 % Lymphocytes (%) (Auto) 15.4 L 21.0-51.0 % Monocytes (%) (Auto) 5.2 3.0-13.0 % Eosinophils (%) (Auto) 1.4 0.0-8.0 % Basophils (%) (Auto) 0.4 0.0-5.0 % Neutrophils # (Auto) 10.3 H 1.8-7.7 K/uL Lymphocytes # (Auto) 2.1 1.0-4.8 K/uL Monocytes # (Auto) 0.7 0.1-1.0 K/uL Eosinophils # (Auto) 0.19 0.00-0.70 K/uL Basophils # (Auto) 0.05 0.00-0.20 K/uL Absolute Immature Granulocyte (auto 0.05 0-1 K/uL Nucleated Red Blood Cells 0.0 0.0-0.19 % Sodium Level 142 136-145 mmol/L Potassium Level 4.2 3.5-5.1 mmol/L Chloride Level 105 101-111 mmol/L Carbon Dioxide Level 28 21-32 mmol/L Blood Urea Nitrogen 12 7-18 mg/dL Creatinine 0.9 0.5-1.3 mg/dL Glomerular Filtration Rate Calc 119 >90 mL/min Random Glucose 115 H 70-105 mg/dL Total Calcium 9.1 8.5-10.1 mg/dL Lipase 43 16-77 U/L Current Medications Medications (Trade) Dose Ordered Sig/Miguel Angel Route PRN Reason Start Time Stop Time Status Last Admin Dose Admin Acetaminophen (TYLenol 325MG TAB) 650 mg Q4H PRN PO TEMPERATURE GREATER THAN 101.5 09/06/25 15:00 10/06/25 14:59 Acetaminophen (TYLenol 325MG TAB) 650 mg Q6H PRN PO MILD PAIN (1-3) 09/06/25 15:00 10/06/25 14:59 Metronidazole/ Sodium Chloride 100 ml @ 100 mls/hr Q8H6 IVPB 09/06/25 22:00 09/06/25 14:46 DC Morphine Sulfate (morPHINE 4MG SYG) 2 mg Q4H PRN IVP SEVERE PAIN (7-10) 09/06/25 15:00 09/13/25 14:59 Ondansetron HCl (zoFRAN 4MG INJ) 4 mg Q6H PRN IVP NAUSEA/VOMITING 09/06/25 15:00 10/06/25 14:59 Piperacillin Sod/ Tazobactam Sod (Zosyn 3.375gm+NS 50ml) 3.375 gm ONCE STAT IVPB 09/06/25 14:00 09/06/25 14:03 DC 09/06/25 14:24 3.375 GM Piperacillin Sod/ Tazobactam Sod (Zosyn 3.375gm+NS 50ml) 3.375 gm Q8H IV 09/06/25 22:00 09/16/25 21:59 DIAGNOSTICS / RADIOLOGY: [ ] ASSESSMENT: Acute sigmoid diverticulitis, recurrent, POA Leukocytosis, POA Mild hyperglycemia, POA Pain, acute abdominal, POA Nausea/anorexia, POA Dehydration (presumed, given poor oral intake)< POA ] PLAN: [Admit to medical-surgical floor NPO status Continue IV fluids: Normal saline at 100 mL/hour IV antibiotics: Continue Zosyn; add Flagyl (metronidazole) per protocol Order CRP and ESR Daily laboratory monitoring (CBC, BMP, glucose) Consult General Surgery for evaluation of recurrent diverticulitis Repeat labs tomorrow Initiate GI prophylaxis (e.g., PPI) Initiate DVT prophylaxis (e.g., enoxaparin unless contraindicated) Monitor for clinical improvement or signs of complication (peritonitis, abscess, perforation) Advance diet as tolerated once symptoms improve Patient is a full code Case discussed with Dr. Iraheta, above plan was formulated ] ADVANCED CARE PLANNING 1. Which of the following were discussed? Hospice Care - Yes / No Therapeutic options - Yes / No Advance Directives - Yes / No Other discussions - 2. Discussed with who? Patient 3. Voluntary nature of this service was explained to the patient? Yes / No 4. Amount of time spent - __20 mins 5. Reviewed by Physician? (if this service was performed by NPP) Yes / No ANSELMO PATEL AGPCNP Sep 06, 2025 15:30
--- NOTE | 2025-09-06 17:25 | NUR ---
DCP: HOME Pt lives alone in his parents home. Pt works at [email or web address], is independent of all his ADLS. Able to complete home management and meal prep on his own. No DME or in home care services. Pt waiting for work insurance to kick in so he can get PCP. Sw provided community resources for future use. Pt denies dc needs and will return home. ER contact is Amie Juarez [phone] Addendum: 09/06/25 at 1733 by RONALD ROME Amended: Links added.
--- NOTE | 2025-09-06 17:40 | CONS ---
CONSULT NOTE: Consulting physician:Dr Henry Consulting service: General surgery Reason for consultation: Acute diverticulitis History of present illness: This is a 30-year-old male with a known history of diverticulitis with multiple episodes of diverticulitis over the years. Patient has been able to follow up with any Surgical teams due to lack of insurance. For concerns of familiar discomfort patient finally presented to the hospital. Patient reports that pain began five days prior. Patient is familiar with the discomfort and was concerned with worsening diverticulitis. Patient is seen in the ER resting. Abdominal pain improving. Patient is currently on IV fluids and IV antibiotics. CT imaging confirming acute diverticulitis with no with no abscess or perforation Medical history: Diverticulitis, morbid obesity PAST SURGICAL HISTORY: Denies any surgical history PAST SOCIAL HISTORY: Patient works with the [employer], smokes marijuana once in a while, decreased alcohol use to once a week on the weekends or illicit drug use reported FAMILY HISTORY: Hypertension, grandfather Coded Allergies: No Known Allergies (Unverified Allergy, Unknown, 03/29/21) Review of systems: General: No Fever, No Chills, No Night Sweats, No Fatigue, No Malaise, No Appetite, No Other HEENT: No Head Aches, No Visual Changes, No Eye Pain, No Ear Pain, No Dy sphasia, No Sinus Congestion, No Post Nasal Drip, No Sore Throat, No Other Pulmonary: No Dyspnea, No Cough, No Pleuritic Chest Pain, No Other Cardiovascular: No: Chest Pain, Palpitations, Orthopnea, Paroxysmal No Dyspnea, Edema, Lt Headedness, Other Gastrointestinal: No: Nausea, Vomiting, Diarrhea, Constipation, Melena, Hematochezia, Other Genitourinary: No Dysuria, No Frequency, No Incontinence, No Hematuria, No Retention, No Other Musculoskeletal: No: other, neck pain, shoulder pain, arm pain, back pain, hand pain, leg pain, foot pain Skin: No Urticaria, No Rash, No Other Neurological: No: Weakness, Numbness, Incoordination, Change in speech, Confusion, Seizures, Other Physical exam: General: Awake alert and oriented Heart: Regular rate and rhythm} Lungs: [Clear to auscultation no distress Abdomen: [ Improving abdominal discomfort from admission Assessment: This is a 30-year-old male with concerns of acute diverticulitis Plan: At this point in time we will treat patient conservatively Patient to remain NPO Patient informed that he will likely need colonoscopy 6-8 weeks after discharge Continue with the IV fluids and IV antibiotics Dr. Forrest to be updated in patient's status and surgical team to follow patient closely Surgical case has been discussed with my supervising physician in the above plan was formulated and agreed upon Supervising physicians evaluation the patient be done within next 24 hours We appreciate the hospitalist team for us to participate in patient's care. Greater than 55 minutes of time spent patient, reviewing chart, working on documentation BRIA NAYAK Jr. Sep 06, 2025 17:40
[2025-09-06 18:25] VITALS: BP 123/66; PULSE 87; RESP 18; TEMP 98.3
[2025-09-06] MEDS: 0.9%NACL 1000ML 1,000 ML IV SCH (18:36)
[2025-09-06 20:00] VITALS: BP 104/55; PULSE 89; RESP 17; TEMP 98.6; O2SAT 98
--- NOTE | 2025-09-06 21:39 | NUR ---
PAIN CALL PLACED TO [facility]. SPOKE WITH CASSIE MAK ABOUT PATIENT'S CONTINUED COMPLAINT OF ABDOMINAL PAIN 09/10. ADVISED STILL HAS 1.5 HOURS BEFORE NEXT MORPHINE DOSE CAN BE GIVEN. PER CASSIE ANAYAP: DILAUDID 0.5MG IVP ONCE NOW. ORDERS NOTED AND CARRIED OUT.
[2025-09-06] MEDS: ZOSYN 3.375GM +NS 50ML IV SCH (21:52)
[2025-09-07] VITALS (9 sets, daily range): BP systolic 105–124; BP diastolic 60–82; PULSE 81–112; RESP 16–18; TEMP 98.1–99.4; O2SAT 96
[2025-09-07 03:46] LABS: NUCLEATED RED BLOOD CELLS 0.0 % (0.0-0.19); PLATELET COUNT (AUTO) 260.0 K/uL (130-400); RED BLOOD CELL COUNT(AUTO) 4.17 MIL/uL (4.50-6.20); RED CELL DISTRIBUTION WIDTH 12.2 % (11.0-15.5); WHITE BLOOD COUNT (AUTO) 11.1 K/uL (4.8-10.8)
[2025-09-07 04:08] LABS: ASPARTATE AMINOTRANSFERASE 17.0 U/L (10-37); CREATININE 1.0 mg/dL (0.5-1.3); GLOMERULAR FILTR. RATE CALC 105.0 mL/min (>90); GLUCOSE,RANDOM 105.0 mg/dL (70-105); SODIUM SERUM 142.0 mmol/L (136-145); TOTAL PROTEIN, SERUM 6.8 g/dL (6.0-8.3); UREA NITROGEN, BLOOD 9.0 mg/dL (7-18)
[2025-09-07 04:09] LABS: ERYTHROCYTE SEDIMENTATION RATE 41.0 MM/HR (0-15)
--- NOTE | 2025-09-07 13:15 | PN ---
[facility] PROGRESS NOTE Date of Service: Sep 07, 2025 Time of Service: 13:12 SUBJECTIVE: [30-year-old male who presented to the emergency department with severe abdominal pain. Patient was diagnosed with a sigmoid diverticulitis by CT. Patient was evaluated this morning and he complained of still tenderness to the abdomen. Pain is reduced. We will await for further recommendations from general surgeon. Patient will continue NPO status. Continue with IV fluids and IV antibiotics. WBC downtrending. ] REVIEW OF SYSTEMS CONSTITUTIONAL: Denies fevers, chills, or night sweats. No unintentional weight loss reported. NEUROLOGICAL: Denies headache, amaurosis fugax, motor weakness, sensory deficit, vertigo/spinning sensation, gait abnormalities, or tremors. ENT: No hearing loss, otalgia, otorrhea, rhinitis, rhinorrhea, hoarseness, or sore throat. CARDIOVASCULAR: Denies any exertional angina, dyspnea on exertion, orthopnea, paroxysmal nocturnal dyspnea, palpitations, life-threatening arrhythmias, claudication. PULMONARY: Denies any shortness of breath, cough, phlegm/sputum, hemoptysis, pleuritic chest pain. SLEEP: Denies morning headaches, daytime somnolence or napping. Denies difficulty falling asleep, staying asleep, waking from sleep. Denies knowledge of snoring. GASTROINTESTINAL: Left lower quadrant abdominal pain, nausea, anorexia. No vomiting, diarrhea, constipation, hematochezia, or melena GENITOURINARY: Denies frequency, urgency, nocturia, hematuria or incontinence (Storage/Irritative symptoms.) Low urinary stream, straining to void, urinary intermittency or hesitancy, splitting of the voiding stream, terminal dribbling. ENDOCRINOLOGIC: Denies polyuria, polydipsia, polyphagia or heat/cold intolerances. HEMATOLOGIC: Denies thrombophilia/previous clots, or coagulopathy/bleeding disorders. ONCOLOGIC: Denies personal history of malignancy. DERMATOLOGIC: Denies rashes or pruritus. PSYCHIATRIC: Denies any suicidal or homicidal ideation. Denies hallucinations. PHYSICAL EXAM GENERAL APPEARANCE: The patient is awake, alert, and oriented, in no acute cardiopulmonary distress. NEUROLOGICAL: Cranial nerves II-XII grossly intact. Motor is 5/5 in bilateral upper and lower extremities proximal to distal. No sensory deficits. HEENT: Face is symmetric. Pupils are equal and reactive. Extraocular movements are intact. NECK: Supple. No JVD. No thyromegaly. No submental, submandibular, pre-/postauricular, occipital or supraclavicular lymphadenopathy. CHEST: Normal chest expansion. No Telemetry. LUNGS: Absence of any rales, rhonchi or any wheezing. CARDIOVASCULAR: Regular. S1 and S2 normal. No appreciable rubs, murmurs or gallops. ABDOMEN: Tenderness to palpation in the left lower quadrant, no rebound or guarding, no palpable masses, bowel sounds present : Deferred. No Arriaga. EXTREMITIES: Non-edematous and not cyanotic. No clubbing. Good capillary refill. SKIN: No skin breakdown. Vital Signs (last 8hr) Date Time Temp Pulse Resp B/P (MAP) Pulse Ox O2 Delivery O2 Flow Rate FiO2 09/07/25 07:50 96 Room Air* 0 21 09/07/25 07:43 98.4 81 16 117/60 96 Room Air 0.0 LABS: Laboratory: Test 09/07/25 03:41 09/06/25 14:15 09/06/25 13:25 09/06/25 12:36 Range/Units White Blood Count 11.1 H 4.8-10.8 K/uL Red Blood Count 4.17 L 4.50-6.20 MIL/uL Hemoglobin 12.5 L 14.0-18.0 g/dL Hematocrit 37.2 L 42-54 % Mean Corpuscular Volume 89.2 79-99 fL Mean Corpuscular Hemoglobin 30.0 27.0-33.0 pg Mean Corpuscular Hemoglobin Concent 33.6 32.0-36.0 g/dL Red Cell Distribution Width 12.2 11.0-15.5 % Platelet Count 260 130-400 K/uL Mean Platelet Volume 10.1 7.5-10.5 fL Nucleated Red Blood Cells 0.0 0.0-0.19 % Erythrocyte Sedimentation Rate 41 H 0-15 MM/HR Sodium Level 142 136-145 mmol/L Potassium Level 3.5 3.5-5.1 mmol/L Chloride Level 106 101-111 mmol/L Carbon Dioxide Level 27 21-32 mmol/L Blood Urea Nitrogen 9 7-18 mg/dL Creatinine 1.0 0.5-1.3 mg/dL Glomerular Filtration Rate Calc 105 >90 mL/min Random Glucose 105 70-105 mg/dL Total Calcium 8.3 L 8.5-10.1 mg/dL Total Bilirubin 0.7 0.2-1.0 mg/dL Aspartate Amino Transf (AST/SGOT) 17 10-37 U/L Alanine Aminotransferase (ALT/SGPT) 39 12-78 U/L Alkaline Phosphatase 56 50-136 U/L C-Reactive Protein, Quantitative 103.60 H 0.5-3.0 mg/L Total Protein 6.8 6.0-8.3 g/dL Albumin 3.2 L 3.5-5.0 g/dL Lactic Acid Level 1.2 0.8-2.5 mmol/L Urine Color YELLOW YELLOW Urine Appearance CLEAR CLEAR Urine pH 6.0 5.0-8.0 Urine Specific [place] 1.039 H 1.001-1.031 Urine Protein 20 H NEGATIVE mg/dL Urine Glucose (UA) NEGATIVE NEGATIVE mg/dL Urine Ketones NEGATIVE NEGATIVE mg/dL Urine Occult Blood MODERATE H NEGATIVE Urine Nitrate NEGATIVE NEGATIVE Urine Bilirubin NEGATIVE NEGATIVE mg/dL Urine Urobilinogen 0.2 0.2-1.0 mg/dL Urine Leukocyte Esterase NEGATIVE NEGATIVE Jesús/uL Urine RBC 26-50 H 0-1 /HPF Urine WBC 0-1 0-1 /HPF Urine Bacteria None None Seen /HPF Immature Granulocyte % (Auto) 0.4 0-1 % Neutrophils (%) (Auto) 77.2 H 40.0-77.0 % Lymphocytes (%) (Auto) 15.4 L 21.0-51.0 % Monocytes (%) (Auto) 5.2 3.0-13.0 % Eosinophils (%) (Auto) 1.4 0.0-8.0 % Basophils (%) (Auto) 0.4 0.0-5.0 % Neutrophils # (Auto) 10.3 H 1.8-7.7 K/uL Lymphocytes # (Auto) 2.1 1.0-4.8 K/uL Monocytes # (Auto) 0.7 0.1-1.0 K/uL Eosinophils # (Auto) 0.19 0.00-0.70 K/uL Basophils # (Auto) 0.05 0.00-0.20 K/uL Absolute Immature Granulocyte (auto 0.05 0-1 K/uL Lipase 43 16-77 U/L Current Medications Medications (Trade) Dose Ordered Sig/Miguel Angel Route PRN Reason Start Time Stop Time Status Last Admin Dose Admin Acetaminophen (TYLenol 325MG TAB) 650 mg Q4H PRN PO TEMPERATURE GREATER THAN 101.5 09/06/25 15:00 10/06/25 14:59 Acetaminophen (TYLenol 325MG TAB) 650 mg Q6H PRN PO MILD PAIN (1-3) 09/06/25 15:00 10/06/25 14:59 Metronidazole/ Sodium Chloride 100 ml @ 100 mls/hr Q8H6 IVPB 09/06/25 22:00 09/06/25 14:46 DC Morphine Sulfate (morPHINE 4MG SYG) 2 mg Q4H PRN IVP SEVERE PAIN (7-10) 09/06/25 15:00 09/13/25 14:59 09/07/25 09:32 2 MG Ondansetron HCl (zoFRAN 4MG INJ) 4 mg Q6H PRN IVP NAUSEA/VOMITING 09/06/25 15:00 10/06/25 14:59 Piperacillin Sod/ Tazobactam Sod (Zosyn 3.375gm+NS 50ml) 3.375 gm ONCE STAT IVPB 09/06/25 14:00 09/06/25 14:03 DC 09/06/25 14:24 3.375 GM Piperacillin Sod/ Tazobactam Sod (Zosyn 3.375gm+NS 50ml) 3.375 gm Q8H IV 09/06/25 22:00 09/16/25 21:59 09/07/25 05:35 3.375 GM Sodium Chloride 1,000 ml @ 100 mls/hr Q10H IV 09/06/25 18:30 10/06/25 18:29 09/07/25 04:43 100 MLS/HR DIAGNOSTICS / RADIOLOGY: [ ] ASSESSMENT: Acute sigmoid diverticulitis, recurrent, POA Leukocytosis, POA Mild hyperglycemia, POA Pain, acute abdominal, POA Nausea/anorexia, POA Dehydration (presumed, given poor oral intake)< POA ] PLAN: [Admit to medical-surgical floor Continue NPO status Continue IV fluids: Normal saline at 100 mL/hour IV antibiotics: Continue Zosyn; add Flagyl (metronidazole) per protocol Order CRP and ESR Daily laboratory monitoring (CBC, BMP, glucose) Consult General Surgery for evaluation of recurrent diverticulitis Repeat labs tomorrow Initiate GI prophylaxis (e.g., PPI) Initiate DVT prophylaxis (e.g., enoxaparin unless contraindicated), patient is young and ambulatory SCD we will suffice Monitor for clinical improvement or signs of complication (peritonitis, abscess, perforation) Advance diet as tolerated once symptoms improve Patient is a full code Case discussed with Dr. Iraehta, above plan was formulated ] ATTESTATION BY PHYSICIAN I have seen and examined the patient. I reviewed the documentation, medical decision making, and treatment plan as noted by the mid-level provider above. I agree with the findings and plan of care. Velia Henry MD, [facility] Sep 07, 2025 13:15
--- NOTE | 2025-09-07 14:31 | PN ---
GENERAL SURGERY PROGRESS NOTE Date/Time Patient Seen: [ 09/07/2025 11:00 AM] Interval History: [30-year-old male, admitted for diverticulitis, no abscess or perforation Patient has been NPO since yesterday Patient states his pain still there but is decreasing WBCs downtrending to 11.1 H&H 12.5 and 37.2 ] Current Medications Medications (Trade) Dose Ordered Sig/Miguel Angel Route Start Time Stop Time Status Last Admin Dose Admin Metronidazole/ Sodium Chloride 100 ml @ 100 mls/hr Q8H6 IVPB 09/06/25 22:00 09/06/25 14:46 DC Metronidazole/ Sodium Chloride 100 ml @ 100 mls/hr Q8H6 IVPB 09/07/25 14:00 09/07/25 13:21 DC Piperacillin Sod/ Tazobactam Sod (Zosyn 3.375gm+NS 50ml) 3.375 gm ONCE STAT IVPB 09/06/25 14:00 09/06/25 14:03 DC 09/06/25 14:24 3.375 GM Piperacillin Sod/ Tazobactam Sod (Zosyn 3.375gm+NS 50ml) 3.375 gm Q8H IV 09/06/25 22:00 09/16/25 21:59 09/07/25 13:16 3.375 GM Sodium Chloride 1,000 ml @ 100 mls/hr Q10H IV 09/06/25 18:30 10/06/25 18:29 09/07/25 13:16 100 MLS/HR Physical Examination: GENERAL: [No acute distress, male, comfortably sitting up in bed.] HEAD: [Normocephalic.] EYES: [Normal conjunctiva.] ENT: [Hearing grossly intact.] NECK: [Supple.] LUNGS: [Clear breath sounds bilaterally.] HEART: [Normal rate and rhythm.] VASC: [Peripheral pulses +2 bilaterally.] ABD: [LLQ tenderness on deep palpation, Bowel sounds normal, soft, no guarding or rigidity.] : [Not examined] EXT: [No edema.] SKIN: [No rashes or lesions noted.] NEURO: [Awake, alert, and oriented x3. No focal sensory or strength deficits noted.] Vital Signs (last 8hr) Date Time Temp Pulse Resp B/P (MAP) Pulse Ox O2 Delivery O2 Flow Rate FiO2 09/07/25 07:50 96 Room Air* 0 21 09/07/25 07:43 98.4 81 16 117/60 96 Room Air 0.0 Laboratory: [ ] Hematology Labs: Test 09/07/25 03:41 09/06/25 12:36 Range/Units White Blood Count 11.1 H 4.8-10.8 K/uL Red Blood Count 4.17 L 4.50-6.20 MIL/uL Hemoglobin 12.5 L 14.0-18.0 g/dL Hematocrit 37.2 L 42-54 % Mean Corpuscular Volume 89.2 79-99 fL Mean Corpuscular Hemoglobin 30.0 27.0-33.0 pg Mean Corpuscular Hemoglobin Concent 33.6 32.0-36.0 g/dL Red Cell Distribution Width 12.2 11.0-15.5 % Platelet Count 260 130-400 K/uL Mean Platelet Volume 10.1 7.5-10.5 fL Nucleated Red Blood Cells 0.0 0.0-0.19 % Erythrocyte Sedimentation Rate 41 H 0-15 MM/HR Immature Granulocyte % (Auto) 0.4 0-1 % Neutrophils (%) (Auto) 77.2 H 40.0-77.0 % Lymphocytes (%) (Auto) 15.4 L 21.0-51.0 % Monocytes (%) (Auto) 5.2 3.0-13.0 % Eosinophils (%) (Auto) 1.4 0.0-8.0 % Basophils (%) (Auto) 0.4 0.0-5.0 % Neutrophils # (Auto) 10.3 H 1.8-7.7 K/uL Lymphocytes # (Auto) 2.1 1.0-4.8 K/uL Monocytes # (Auto) 0.7 0.1-1.0 K/uL Eosinophils # (Auto) 0.19 0.00-0.70 K/uL Basophils # (Auto) 0.05 0.00-0.20 K/uL Absolute Immature Granulocyte (auto 0.05 0-1 K/uL Chemistry Labs: Test 09/07/25 03:41 09/06/25 14:15 09/06/25 12:36 Range/Units Sodium Level 142 136-145 mmol/L Potassium Level 3.5 3.5-5.1 mmol/L Chloride Level 106 101-111 mmol/L Carbon Dioxide Level 27 21-32 mmol/L Blood Urea Nitrogen 9 7-18 mg/dL Creatinine 1.0 0.5-1.3 mg/dL Glomerular Filtration Rate Calc 105 >90 mL/min Random Glucose 105 70-105 mg/dL Total Calcium 8.3 L 8.5-10.1 mg/dL Total Bilirubin 0.7 0.2-1.0 mg/dL Aspartate Amino Transf (AST/SGOT) 17 10-37 U/L Alanine Aminotransferase (ALT/SGPT) 39 12-78 U/L Alkaline Phosphatase 56 50-136 U/L C-Reactive Protein, Quantitative 103.60 H 0.5-3.0 mg/L Total Protein 6.8 6.0-8.3 g/dL Albumin 3.2 L 3.5-5.0 g/dL Lactic Acid Level 1.2 0.8-2.5 mmol/L Lipase 43 16-77 U/L Diagnostics / Radiology: [Copy/Paste Echos/Imaging Report here] Impression and Plan: [ 30-year-old male admitted for diverticulitis without abscess or perforation Clinically, patient is doing better, reports less pain to left lower quadrant WBCs trending down Keep NPO for another 24 hours then may start on clear liquids No emergent surgical intervention at this time Continue with IV fluids and IV antibiotics Repeat labs in a.m. Dietary consult for teaching on diet to prevent diverticulitis flare-ups in the future Surgical team will continue to follow Dr. Forrest updated on patient's status Surgical case has been discussed with my supervising physician Plan of care was formulated and agreed upon We appreciate the hospitalist team for allowing us to participate in this patient's care Greater than 45 minutes spent examining patient, reviewing chart and working on documentation] ATTESTATION BY PHYSICIAN I have seen and examined the patient. I reviewed the documentation, medical decision making, and treatment plan as noted by the mid-level provider above. I agree with the findings and plan of care. MD RODRICK SCHMITZ LETICIA [facility] Sep 07, 2025 14:31
[2025-09-08 04:00] VITALS: BP_SYST 120; BP_SYST 134; BP_DIAS 69; PULSE 43; PULSE 88; RESP 18; TEMP 97.5; TEMP 98.2
[2025-09-08 06:00] LABS: IMMATURE GRANULOCYTE ABSOLUTE 0.03 K/uL (0-1); NUCLEATED RED BLOOD CELLS 0.0 % (0.0-0.19); PLATELET COUNT (AUTO) 257 K/uL (130-400); RED BLOOD CELL COUNT(AUTO) 4.16 MIL/uL (4.50-6.20); RED CELL DISTRIBUTION WIDTH 11.8 % (11.0-15.5); WHITE BLOOD COUNT (AUTO) 9.8 K/uL (4.8-10.8)
[2025-09-08 06:19] LABS: ASPARTATE AMINOTRANSFERASE 16.0 U/L (10-37); CREATININE 0.8 mg/dL (0.5-1.3); GLOMERULAR FILTR. RATE CALC 124.0 mL/min (>90); GLUCOSE,RANDOM 78.0 mg/dL (70-105); SODIUM SERUM 139.0 mmol/L (136-145); TOTAL PROTEIN, SERUM 6.6 g/dL (6.0-8.3); UREA NITROGEN, BLOOD 10.0 mg/dL (7-18)
[2025-09-08 08:15] VITALS: BP_SYST 110; BP_SYST 112; BP_DIAS 59; BP_DIAS 72; PULSE 78; RESP 16; TEMP 97.4
[2025-09-08 10:00] VITALS: O2SAT 97
[2025-09-08 11:46] VITALS: BP 131/82; PULSE 86; RESP 18; TEMP 98.4
--- NOTE | 2025-09-08 11:57 | NUR ---
Nutrition consult per diverticulitis Reviewed labs, notes, and medications. Pt with diverticulitis, abd pain + nausea, w/ financial constraints, smokes marijuana, alcohol use once a week, NPO since admin, IV fluids, Ca 8.4(L), elevated CRP, alb (L) per chart review. Wt via standing scale, liquid loose BM 09/06/25, no edema, well nourished, no wounds per nursing. Pt reported eating out often due to child with austism, no PCP, pending insurance, no MVI. RD reviewed MNT for diverticulitis, Pt verbalized understanding. Mother present during visit. Pt with PCM per BMI of 41.5. Recommendations: -Provide when medically feasible low fiber diet + HH diet -Monitor PO intake -Encourage PO intake as able -Monitor BM -If no BM >3 days consider stool softener -Consider probiotics QD per diarrhea -Monitor electrolytes -Replenish electrolytes per protocol -Monitor wts -Reweigh as able -Order Vit D, vit b-12 labs to rule out deficiencies -Order lipid panel, A1C -Provide MVI QD -Provide vit. C 500 mg BID per Pt hx of smoking -Advance diet when medically feasible -Recommend Pt to follow up with PCP -Monitor goals of care RD to follow + available for consult per protocol Addendum: 09/08/25 at [address] Amended: Links added.
[2025-09-08 12:55] LABS: LDL DIRECT 96 mg/dL (0-99)
--- NOTE | 2025-09-08 14:27 | PN ---
[facility] PROGRESS NOTE Date of Service: Sep 08, 2025 Time of Service: 14:26 SUBJECTIVE: [30-year-old male who presented to the emergency department with severe abdominal pain. Patient was diagnosed with a sigmoid diverticulitis by CT. Patient was evaluated this morning and he complained of still tenderness to the abdomen. Pain is reduced. We will await for further recommendations from general surgeon. Patient will continue NPO status. Continue with IV fluids and IV antibiotics. WBC downtrending. ] REVIEW OF SYSTEMS CONSTITUTIONAL: Denies fevers, chills, or night sweats. No unintentional weight loss reported. NEUROLOGICAL: Denies headache, amaurosis fugax, motor weakness, sensory deficit, vertigo/spinning sensation, gait abnormalities, or tremors. ENT: No hearing loss, otalgia, otorrhea, rhinitis, rhinorrhea, hoarseness, or sore throat. CARDIOVASCULAR: Denies any exertional angina, dyspnea on exertion, orthopnea, paroxysmal nocturnal dyspnea, palpitations, life-threatening arrhythmias, claudication. PULMONARY: Denies any shortness of breath, cough, phlegm/sputum, hemoptysis, pleuritic chest pain. SLEEP: Denies morning headaches, daytime somnolence or napping. Denies difficulty falling asleep, staying asleep, waking from sleep. Denies knowledge of snoring. GASTROINTESTINAL: Left lower quadrant abdominal pain, nausea, anorexia. No vomiting, diarrhea, constipation, hematochezia, or melena GENITOURINARY: Denies frequency, urgency, nocturia, hematuria or incontinence (Storage/Irritative symptoms.) Low urinary stream, straining to void, urinary intermittency or hesitancy, splitting of the voiding stream, terminal dribbling. ENDOCRINOLOGIC: Denies polyuria, polydipsia, polyphagia or heat/cold intolerances. HEMATOLOGIC: Denies thrombophilia/previous clots, or coagulopathy/bleeding disorders. ONCOLOGIC: Denies personal history of malignancy. DERMATOLOGIC: Denies rashes or pruritus. PSYCHIATRIC: Denies any suicidal or homicidal ideation. Denies hallucinations. PHYSICAL EXAM GENERAL APPEARANCE: The patient is awake, alert, and oriented, in no acute cardiopulmonary distress. NEUROLOGICAL: Cranial nerves II-XII grossly intact. Motor is 5/5 in bilateral upper and lower extremities proximal to distal. No sensory deficits. HEENT: Face is symmetric. Pupils are equal and reactive. Extraocular movements are intact. NECK: Supple. No JVD. No thyromegaly. No submental, submandibular, pre-/postauricular, occipital or supraclavicular lymphadenopathy. CHEST: Normal chest expansion. No Telemetry. LUNGS: Absence of any rales, rhonchi or any wheezing. CARDIOVASCULAR: Regular. S1 and S2 normal. No appreciable rubs, murmurs or gallops. ABDOMEN: Tenderness to palpation in the left lower quadrant, no rebound or guarding, no palpable masses, bowel sounds present : Deferred. No Arriaga. EXTREMITIES: Non-edematous and not cyanotic. No clubbing. Good capillary refill. SKIN: No skin breakdown. Vital Signs (last 8hr) Date Time Temp Pulse Resp B/P (MAP) Pulse Ox O2 Delivery O2 Flow Rate FiO2 09/08/25 11:46 98.4 86 18 131/82 99 Room Air 09/08/25 08:15 97.3 78 16 110/59 98 Room Air 112/72 LABS: Laboratory: Test 09/08/25 05:54 09/07/25 03:41 Range/Units White Blood Count 9.8 4.8-10.8 K/uL Red Blood Count 4.16 L 4.50-6.20 MIL/uL Hemoglobin 12.4 L 14.0-18.0 g/dL Hematocrit 35.9 L 42-54 % Mean Corpuscular Volume 86.3 79-99 fL Mean Corpuscular Hemoglobin 29.8 27.0-33.0 pg Mean Corpuscular Hemoglobin Concent 34.5 32.0-36.0 g/dL Red Cell Distribution Width 11.8 11.0-15.5 % Platelet Count 257 130-400 K/uL Mean Platelet Volume 10.0 7.5-10.5 fL Immature Granulocyte % (Auto) 0.3 0-1 % Neutrophils (%) (Auto) 71.8 40.0-77.0 % Lymphocytes (%) (Auto) 19.5 L 21.0-51.0 % Monocytes (%) (Auto) 6.5 3.0-13.0 % Eosinophils (%) (Auto) 1.7 0.0-8.0 % Basophils (%) (Auto) 0.2 0.0-5.0 % Neutrophils # (Auto) 7.1 1.8-7.7 K/uL Lymphocytes # (Auto) 1.9 1.0-4.8 K/uL Monocytes # (Auto) 0.6 0.1-1.0 K/uL Eosinophils # (Auto) 0.17 0.00-0.70 K/uL Basophils # (Auto) 0.02 0.00-0.20 K/uL Absolute Immature Granulocyte (auto 0.03 0-1 K/uL Nucleated Red Blood Cells 0.0 0.0-0.19 % Sodium Level 139 136-145 mmol/L Potassium Level 3.8 3.5-5.1 mmol/L Chloride Level 104 101-111 mmol/L Carbon Dioxide Level 24 21-32 mmol/L Blood Urea Nitrogen 10 7-18 mg/dL Creatinine 0.8 0.5-1.3 mg/dL Glomerular Filtration Rate Calc 124 >90 mL/min Random Glucose 78 70-105 mg/dL Hemoglobin A1c 5.5 4.0-6.0 % Estimated Average Glucose (eAG) 111 70-126 mg/dL Total Calcium 8.4 L 8.5-10.1 mg/dL Total Bilirubin 1.0 0.2-1.0 mg/dL Aspartate Amino Transf (AST/SGOT) 16 10-37 U/L Alanine Aminotransferase (ALT/SGPT) 30 12-78 U/L Alkaline Phosphatase 55 50-136 U/L Total Protein 6.6 6.0-8.3 g/dL Albumin 2.9 L 3.5-5.0 g/dL Triglycerides Level 84 30-200 mg/dL Cholesterol Level 145 <200 mg/dL LDL Cholesterol 96 0-99 mg/dL HDL Cholesterol 37 29-71 mg/dL Vitamin B12 Level 253 193-986 pg/mL Erythrocyte Sedimentation Rate 41 H 0-15 MM/HR C-Reactive Protein, Quantitative 103.60 H 0.5-3.0 mg/L Current Medications Medications (Trade) Dose Ordered Sig/Miguel Angel Route PRN Reason Start Time Stop Time Status Last Admin Dose Admin Acetaminophen (TYLenol 325MG TAB) 650 mg Q4H PRN PO TEMPERATURE GREATER THAN 101.5 09/06/25 15:00 10/06/25 14:59 Acetaminophen (TYLenol 325MG TAB) 650 mg Q6H PRN PO MILD PAIN (1-3) 09/06/25 15:00 10/06/25 14:59 Metronidazole/ Sodium Chloride 100 ml @ 100 mls/hr Q8H6 IVPB 09/06/25 22:00 09/06/25 14:46 DC Metronidazole/ Sodium Chloride 100 ml @ 100 mls/hr Q8H6 IVPB 09/07/25 14:00 09/07/25 13:21 DC Morphine Sulfate (morPHINE 4MG SYG) 2 mg Q4H PRN IVP SEVERE PAIN (7-10) 09/06/25 15:00 09/13/25 14:59 09/08/25 13:26 2 MG Ondansetron HCl (zoFRAN 4MG INJ) 4 mg Q6H PRN IVP NAUSEA/VOMITING 09/06/25 15:00 10/06/25 14:59 Piperacillin Sod/ Tazobactam Sod (Zosyn 3.375gm+NS 50ml) 3.375 gm ONCE STAT IVPB 09/06/25 14:00 09/06/25 14:03 DC 09/06/25 14:24 3.375 GM Piperacillin Sod/ Tazobactam Sod (Zosyn 3.375gm+NS 50ml) 3.375 gm Q8H IV 09/06/25 22:00 09/16/25 21:59 09/08/25 06:07 3.375 GM Sodium Chloride 1,000 ml @ 100 mls/hr Q10H IV 09/06/25 18:30 10/06/25 18:29 09/08/25 12:22 100 MLS/HR DIAGNOSTICS / RADIOLOGY: [ ] ASSESSMENT: Acute sigmoid diverticulitis, recurrent, POA Leukocytosis, POA Mild hyperglycemia, POA Pain, acute abdominal, POA Nausea/anorexia, POA Dehydration (presumed, given poor oral intake)< POA ] PLAN: [Admit to medical-surgical floor Continue NPO status Continue IV fluids: Normal saline at 100 mL/hour IV antibiotics: Continue Zosyn; add Flagyl (metronidazole) per protocol Order CRP and ESR Daily laboratory monitoring (CBC, BMP, glucose) Consult General Surgery for evaluation of recurrent diverticulitis Repeat labs tomorrow Initiate GI prophylaxis (e.g., PPI) Initiate DVT prophylaxis (e.g., enoxaparin unless contraindicated), patient is young and ambulatory SCD we will suffice Monitor for clinical improvement or signs of complication (peritonitis, abscess, perforation) Advance diet as tolerated once symptoms improve Patient is a full code Case discussed with Dr. Iraheta, above plan was formulated ] ATTESTATION BY PHYSICIAN I have seen and examined the patient. I reviewed the documentation, medical decision making, and treatment plan as noted by the mid-level provider above. I agree with the findings and plan of care. Velia Henry MD, [facility] Sep 08, 2025 14:27
[2025-09-08 16:00] VITALS: BP 133/75; PULSE 77; RESP 14; TEMP 98.4
--- NOTE | 2025-09-08 17:15 | PN ---
This is a 30-year-old male with concerns of acute sigmoid diverticulitis Interval history: This 30-year-old male seen in his room resting Abdominal pain improving Patient tolerating clear clear liquids Continue with the IV fluids and IV antibiotics Physical exam General: Awake alert and oriented Heart: Regular rate and rhythm} Lungs: Clear to auscultation no distress Abdomen: [Soft, nontender, nondistended Assessment : This is a 30-year-old male with concerns of acute sigmoid diverticulitis Plan: At this point in time patient is cleared to advance to full liquids Continue with the IV fluids and IV antibiotics Possible advancement of diet tomorrow Continue with conservative management Patient will need colonoscopy in outpatient setting 6-[address] Forrest to be updated in patient's status Surgical case has been discussed with my supervising physician in the above plan was formulated and agreed upon We appreciate the hospitalist team for us to participate in patient's care. Greater than 45 minutes of time spent patient, reviewing chart, working on documentation Vitals/Labs Vital Signs Date Time Temp Pulse Resp B/P (MAP) Pulse Ox O2 Delivery O2 Flow Rate FiO2 09/08/25 11:46 98.4 86 18 131/82 99 Room Air 09/08/25 04:00 0.0 09/07/25 20:00 21 Laboratory Tests 09/08/25 05:54 Medications Current Medications Sodium Chloride 1,000 ml @ 0 mls/hr ONCE ONCE IV Last administered on 09/06/25at 13:53; Start 09/06/25 at 12:30; Stop 09/06/25 at 12:31; Status DC Morphine Sulfate 2 mg ONCE ONCE IVP Last administered on 09/06/25at 13:53; Start 09/06/25 at 12:30; Stop 09/06/25 at 12:31; Status DC Ondansetron HCl 4 mg ONCE ONCE IVP Last administered on 09/06/25at 13:53; Start 09/06/25 at 12:30; Stop 09/06/25 at 12:31; Status DC Iohexol 35,000 mg STK-MED ONCE IV; Start 09/06/25 at 13:18; Stop 09/06/25 at 13:18; Status DC Piperacillin Sod/ Tazobactam Sod 3.375 gm ONCE STAT IVPB Last administered on 09/06/25at 14:24; Start 09/06/25 at 14:00; Stop 09/06/25 at 14:03; Status DC Morphine Sulfate 2 mg ONCE ONCE IVP Last administered on 09/06/25at 15:25; Start 09/06/25 at 14:30; Stop 09/06/25 at 14:31; Status DC Piperacillin Sod/ Tazobactam Sod 3.375 gm Q8H IV Last administered on 09/08/25at 14:55; Start 09/06/25 at 22:00; Stop 09/16/25 at 21:59 Metronidazole/ Sodium Chloride 100 ml @ 100 mls/hr Q8H6 IVPB; Start 09/06/25 at 22:00; Stop 09/06/25 at 14:46; Status DC Acetaminophen 650 mg Q4H PRN PO; Start 09/06/25 at 15:00; Stop 10/06/25 at 14:59 Acetaminophen 650 mg Q6H PRN PO; Start 09/06/25 at 15:00; Stop 10/06/25 at 14:59 Morphine Sulfate 2 mg Q4H PRN IVP Last administered on 09/08/25at 13:26; Start 09/06/25 at 15:00; Stop 09/13/25 at 14:59 Ondansetron HCl 4 mg Q6H PRN IVP; Start 09/06/25 at 15:00; Stop 10/06/25 at 14:59 Sodium Chloride 1,000 ml @ 100 mls/hr Q10H IV Last administered on 09/08/25at 12:22; Start 09/06/25 at 18:30; Stop 10/06/25 at 18:29 Hydromorphone HCl 0.5 mg ONCE ONCE IVP Last administered on 09/06/25at 21:53; Start 09/06/25 at 22:00; Stop 09/06/25 at 22:01; Status DC Metronidazole/ Sodium Chloride 100 ml @ 100 mls/hr Q8H6 IVPB; Start 09/07/25 at 14:00; Stop 09/07/25 at 13:21; Status DC BRIA NAYAK Jr. PAC Sep 08, 2025 17:15
[2025-09-08 20:00] VITALS: BP 134/76; PULSE 94; RESP 18; TEMP 98.7; O2SAT 94
[2025-09-09] VITALS (7 sets, daily range): BP systolic 96–117; BP diastolic 61–72; PULSE 72–94; RESP 14–18; TEMP 97.4–98.3; O2SAT 97–98
--- NOTE | 2025-09-09 09:34 | PN ---
[facility] PROGRESS NOTE Date of Service: Sep 09, 2025 Time of Service: 09:30 SUBJECTIVE: [30-year-old male who presented to the emergency department with severe abdominal pain. Patient was diagnosed with a sigmoid diverticulitis by CT. Patient was evaluated this morning and he complained of still tenderness to the abdomen. Pain is reduced. We will await for further recommendations from general surgeon. Patient reported increase pain on current diet, We will downgrade to [facility] again if it continues he will need tp be NPO. REVIEW OF SYSTEMS CONSTITUTIONAL: Denies fevers, chills, or night sweats. No unintentional weight loss reported. NEUROLOGICAL: Denies headache, amaurosis fugax, motor weakness, sensory deficit, vertigo/spinning sensation, gait abnormalities, or tremors. ENT: No hearing loss, otalgia, otorrhea, rhinitis, rhinorrhea, hoarseness, or sore throat. CARDIOVASCULAR: Denies any exertional angina, dyspnea on exertion, orthopnea, paroxysmal nocturnal dyspnea, palpitations, life-threatening arrhythmias, claudication. PULMONARY: Denies any shortness of breath, cough, phlegm/sputum, hemoptysis, pleuritic chest pain. SLEEP: Denies morning headaches, daytime somnolence or napping. Denies difficulty falling asleep, staying asleep, waking from sleep. Denies knowledge of snoring. GASTROINTESTINAL: Left lower quadrant abdominal pain, nausea, anorexia. No vomiting, diarrhea, constipation, hematochezia, or melena GENITOURINARY: Denies frequency, urgency, nocturia, hematuria or incontinence (Storage/Irritative symptoms.) Low urinary stream, straining to void, urinary intermittency or hesitancy, splitting of the voiding stream, terminal dribbling. ENDOCRINOLOGIC: Denies polyuria, polydipsia, polyphagia or heat/cold intolerances. HEMATOLOGIC: Denies thrombophilia/previous clots, or coagulopathy/bleeding disorders. ONCOLOGIC: Denies personal history of malignancy. DERMATOLOGIC: Denies rashes or pruritus. PSYCHIATRIC: Denies any suicidal or homicidal ideation. Denies hallucinations. PHYSICAL EXAM GENERAL APPEARANCE: The patient is awake, alert, and oriented, in no acute cardiopulmonary distress. NEUROLOGICAL: Cranial nerves II-XII grossly intact. Motor is 5/5 in bilateral upper and lower extremities proximal to distal. No sensory deficits. HEENT: Face is symmetric. Pupils are equal and reactive. Extraocular movements are intact. NECK: Supple. No JVD. No thyromegaly. No submental, submandibular, pre- /postauricular, occipital or supraclavicular lymphadenopathy. CHEST: Normal chest expansion. No Telemetry. LUNGS: Absence of any rales, rhonchi or any wheezing. CARDIOVASCULAR: Regular. S1 and S2 normal. No appreciable rubs, murmurs or gallops. ABDOMEN: Tenderness to palpation in the left lower quadrant, no rebound or guarding, no palpable masses, bowel sounds present : Deferred. No Arriaga. EXTREMITIES: Non-edematous and not cyanotic. No clubbing. Good capillary refill. SKIN: No skin breakdown. Vital Signs (last 8hr) Date Time Temp Pulse Resp B/P (MAP) Pulse Ox O2 Delivery O2 Flow Rate FiO2 09/09/25 04:00 97.5 76 16 112/72 97 Room Air LABS: Laboratory: Test 09/08/25 05:54 Range/Units White Blood Count 9.8 4.8-10.8 K/uL Red Blood Count 4.16 L 4.50-6.20 MIL/uL Hemoglobin 12.4 L 14.0-18.0 g/dL Hematocrit 35.9 L 42-54 % Mean Corpuscular Volume 86.3 79-99 fL Mean Corpuscular Hemoglobin 29.8 27.0-33.0 pg Mean Corpuscular Hemoglobin Concent 34.5 32.0-36.0 g/dL Red Cell Distribution Width 11.8 11.0-15.5 % Platelet Count 257 130-400 K/uL Mean Platelet Volume 10.0 7.5-10.5 fL Immature Granulocyte % (Auto) 0.3 0-1 % Neutrophils (%) (Auto) 71.8 40.0-77.0 % Lymphocytes (%) (Auto) 19.5 L 21.0-51.0 % Monocytes (%) (Auto) 6.5 3.0-13.0 % Eosinophils (%) (Auto) 1.7 0.0-8.0 % Basophils (%) (Auto) 0.2 0.0-5.0 % Neutrophils # (Auto) 7.1 1.8-7.7 K/uL Lymphocytes # (Auto) 1.9 1.0-4.8 K/uL Monocytes # (Auto) 0.6 0.1-1.0 K/uL Eosinophils # (Auto) 0.17 0.00-0.70 K/uL Basophils # (Auto) 0.02 0.00-0.20 K/uL Absolute Immature Granulocyte (auto 0.03 0-1 K/uL Nucleated Red Blood Cells 0.0 0.0-0.19 % Sodium Level 139 136-145 mmol/L Potassium Level 3.8 3.5-5.1 mmol/L Chloride Level 104 101-111 mmol/L Carbon Dioxide Level 24 21-32 mmol/L Blood Urea Nitrogen 10 7-18 mg/dL Creatinine 0.8 0.5-1.3 mg/dL Glomerular Filtration Rate Calc 124 >90 mL/min Random Glucose 78 70-105 mg/dL Hemoglobin A1c 5.5 4.0-6.0 % Estimated Average Glucose (eAG) 111 70-126 mg/dL Total Calcium 8.4 L 8.5-10.1 mg/dL Total Bilirubin 1.0 0.2-1.0 mg/dL Aspartate Amino Transf (AST/SGOT) 16 10-37 U/L Alanine Aminotransferase (ALT/SGPT) 30 12-78 U/L Alkaline Phosphatase 55 50-136 U/L Total Protein 6.6 6.0-8.3 g/dL Albumin 2.9 L 3.5-5.0 g/dL Triglycerides Level 84 30-200 mg/dL Cholesterol Level 145 <200 mg/dL LDL Cholesterol 96 0-99 mg/dL HDL Cholesterol 37 29-71 mg/dL Vitamin B12 Level 253 193-986 pg/mL Current Medications Medications (Trade) Dose Ordered Sig/Miguel Angel Route PRN Reason Start Time Stop Time Status Last Admin Dose Admin Acetaminophen (TYLenol 325MG TAB) 650 mg Q4H PRN PO TEMPERATURE GREATER THAN 101.5 09/06/25 15:00 10/06/25 14:59 Acetaminophen (TYLenol 325MG TAB) 650 mg Q6H PRN PO MILD PAIN (1-3) 09/06/25 15:00 10/06/25 14:59 Metronidazole/ Sodium Chloride 100 ml @ 100 mls/hr Q8H6 IVPB 09/06/25 22:00 09/06/25 14:46 DC Metronidazole/ Sodium Chloride 100 ml @ 100 mls/hr Q8H6 IVPB 09/07/25 14:00 09/07/25 13:21 DC Morphine Sulfate (morPHINE 4MG SYG) 2 mg Q4H PRN IVP SEVERE PAIN (7-10) 09/06/25 15:00 09/13/25 14:59 09/08/25 19:53 2 MG Ondansetron HCl (zoFRAN 4MG INJ) 4 mg Q6H PRN IVP NAUSEA/VOMITING 09/06/25 15:00 10/06/25 14:59 Piperacillin Sod/ Tazobactam Sod (Zosyn 3.375gm+NS 50ml) 3.375 gm ONCE STAT IVPB 09/06/25 14:00 09/06/25 14:03 DC 09/06/25 14:24 3.375 GM Piperacillin Sod/ Tazobactam Sod (Zosyn 3.375gm+NS 50ml) 3.375 gm Q8H IV 09/06/25 22:00 09/16/25 21:59 09/09/25 05:27 3.375 GM Sodium Chloride 1,000 ml @ 100 mls/hr Q10H IV 09/06/25 18:30 10/06/25 18:29 09/09/25 05:27 100 MLS/HR DIAGNOSTICS / RADIOLOGY: [ ] ASSESSMENT: Acute sigmoid diverticulitis, recurrent, POA Leukocytosis, POA Mild hyperglycemia, POA Pain, acute abdominal, POA Nausea/anorexia, POA Dehydration (presumed, given poor oral intake)< POA ] PLAN: [Admit to medical-surgical floorwill downgrade to [facility] due to increase pain Continue IV fluids: Normal saline at 100 mL/hour IV antibiotics: Continue Zosyn; add Flagyl (metronidazole) per protocol Order CRP and ESR Daily laboratory monitoring (CBC, BMP, glucose) Consult General Surgery for evaluation of recurrent diverticulitis Repeat labs tomorrow Initiate GI prophylaxis (e.g., PPI) Initiate DVT prophylaxis (e.g., enoxaparin unless contraindicated), patient is young and ambulatory SCD we will suffice Monitor for clinical improvement or signs of complication (peritonitis, abscess, perforation) Advance diet as tolerated once symptoms improve Patient is a full code Case discussed with Dr. Iraheta, above plan was formulated ] ATTESTATION BY PHYSICIAN I have seen and examined the patient. I reviewed the documentation, medical decision making, and treatment plan as noted by the mid-level provider above. I agree with the findings and plan of care. Velia Henry MD, [facility] Sep 09, 2025 09:34
[2025-09-09 10:14] LABS: NUCLEATED RED BLOOD CELLS 0.0 % (0.0-0.19); PLATELET COUNT (AUTO) 335.0 K/uL (130-400); RED BLOOD CELL COUNT(AUTO) 4.66 MIL/uL (4.50-6.20); RED CELL DISTRIBUTION WIDTH 11.7 % (11.0-15.5); WHITE BLOOD COUNT (AUTO) 10.5 K/uL (4.8-10.8)
[2025-09-09 10:26] LABS: CREATININE 0.9 mg/dL (0.5-1.3); GLOMERULAR FILTR. RATE CALC 119.0 mL/min (>90); GLUCOSE,RANDOM 85.0 mg/dL (70-105); SODIUM SERUM 139.0 mmol/L (136-145); UREA NITROGEN, BLOOD 8.0 mg/dL (7-18)
--- NOTE | 2025-09-09 16:03 | PN ---
This is a 30-year-old male with concerns of acute diverticulitis Interval history: This 30-year-old male seen in his room resting Patient has been advanced to full liquids but did not tolerate patient's downgraded back to clears which he is doing better on Patient is a time of exam reporting no abdominal pain Patient remains on IV fluids and IV antibiotics WBCs 10.5 with a hemoglobin of 13.9 Physical exam General: Awake alert and oriented Heart: Regular rate and rhythm} Lungs: Clear to auscultation no distress Abdomen: [Soft, nontender, nondistended Assessment : This is a 30-year-old male with concerns of acute diverticulitis Plan: From surgical standpoint we will continue with conservative management Patient will likely need repeat CT with the weekend Continue with the IV fluids and IV antibiotics Abdominal pain continues to improve possible advancement of diet tomorrow Dr. Haas to be updated in patient's status and surgical team to follow patient closely Surgical case has been discussed with my supervising physician in the above plan was formulated and agreed upon We appreciate the hospitalist team for us to participate in patient's care. Greater than 45 minutes of time spent patient, reviewing chart, working on documentation Vitals/Labs Vital Signs Date Time Temp Pulse Resp B/P (MAP) Pulse Ox O2 Delivery O2 Flow Rate FiO2 09/09/25 12:00 98.1 93 18 115/71 96 Room Air 09/09/25 10:00 0 21 Laboratory Tests 09/09/25 10:07 Medications Current Medications Sodium Chloride 1,000 ml @ 0 mls/hr ONCE ONCE IV Last administered on 09/06/25at 13:53; Start 09/06/25 at 12:30; Stop 09/06/25 at 12:31; Status DC Morphine Sulfate 2 mg ONCE ONCE IVP Last administered on 09/06/25at 13:53; Start 09/06/25 at 12:30; Stop 09/06/25 at 12:31; Status DC Ondansetron HCl 4 mg ONCE ONCE IVP Last administered on 09/06/25at 13:53; Start 09/06/25 at 12:30; Stop 09/06/25 at 12:31; Status DC Iohexol 35,000 mg STK-MED ONCE IV; Start 09/06/25 at 13:18; Stop 09/06/25 at 13:18; Status DC Piperacillin Sod/ Tazobactam Sod 3.375 gm ONCE STAT IVPB Last administered on 09/06/25at 14:24; Start 09/06/25 at 14:00; Stop 09/06/25 at 14:03; Status DC Morphine Sulfate 2 mg ONCE ONCE IVP Last administered on 09/06/25at 15:25; Start 09/06/25 at 14:30; Stop 09/06/25 at 14:31; Status DC Piperacillin Sod/ Tazobactam Sod 3.375 gm Q8H IV Last administered on 09/09/25at 14:53; Start 09/06/25 at 22:00; Stop 09/16/25 at 21:59 Metronidazole/ Sodium Chloride 100 ml @ 100 mls/hr Q8H6 IVPB; Start 09/06/25 at 22:00; Stop 09/06/25 at 14:46; Status DC Acetaminophen 650 mg Q4H PRN PO; Start 09/06/25 at 15:00; Stop 10/06/25 at 14:59 Acetaminophen 650 mg Q6H PRN PO; Start 09/06/25 at 15:00; Stop 10/06/25 at 14:59 Morphine Sulfate 2 mg Q4H PRN IVP Last administered on 09/08/25at 19:53; Start 09/06/25 at 15:00; Stop 09/13/25 at 14:59 Ondansetron HCl 4 mg Q6H PRN IVP; Start 09/06/25 at 15:00; Stop 10/06/25 at 14:59 Sodium Chloride 1,000 ml @ 100 mls/hr Q10H IV Last administered on 09/09/25at 05:27; Start 09/06/25 at 18:30; Stop 10/06/25 at 18:29 Hydromorphone HCl 0.5 mg ONCE ONCE IVP Last administered on 09/06/25at 21:53; Start 09/06/25 at 22:00; Stop 09/06/25 at 22:01; Status DC Metronidazole/ Sodium Chloride 100 ml @ 100 mls/hr Q8H6 IVPB; Start 09/07/25 at 14:00; Stop 09/07/25 at 13:21; Status DC BRIA NAYAK Jr. PAC Sep 09, 2025 16:03
[2025-09-10] VITALS (7 sets, daily range): BP systolic 99–122; BP diastolic 57–74; PULSE 67–107; RESP 16–18; TEMP 97.9–98.2; O2SAT 98
--- NOTE | 2025-09-10 07:40 | NUR ---
12 HR REPORT RECEIVED FROM Juancho LOPEZ FRONT END APPLICATION DEVELOPER;
--- NOTE | 2025-09-10 10:02 | PN ---
[facility] PROGRESS NOTE Date of Service: Sep 10, 2025 Time of Service: 09:58 SUBJECTIVE: [The patient is a 30-year-old male with a past medical history significant for diverticulitis, previously admitted to [facility] last month. He reports completing his prescribed antibiotic course after discharge. Approximately five days ago, he began experiencing recurrent abdominal pain localized to the left lower quadrant. Despite ongoing symptoms, he continued working due to financial constraints. Today, the pain became intolerable, prompting his visit to the emergency department. Associated symptoms include nausea (without vomiting) and anorexia. He denies fever, chills, diarrhea, constipation, hematochezia, or melena. 09/07 [30-year-old male who presented to the emergency department with severe abdominal pain. Patient was diagnosed with a sigmoid diverticulitis by CT. Patient was evaluated this morning and he complained of still tenderness to the abdomen. Pain is reduced. We will await for further recommendations from general surgeon. Patient will continue NPO status. Continue with IV fluids and IV antibiotics. WBC downtrending. ] 09/08 WBC downtrending. ] 09/09 We will await for further recommendations from general surgeon. Patient reported increase pain on current diet, We will downgrade to CLD again if it continues he will need tp be NPO. 09/10 patient has been evaluated by surgery with recommendations for conservative management. Also recommended repeat CT during the weekend. Appreciate assistance REVIEW OF SYSTEMS CONSTITUTIONAL: Denies fevers, chills, or night sweats. No unintentional weight loss reported. NEUROLOGICAL: Denies headache, amaurosis fugax, motor weakness, sensory deficit, vertigo/spinning sensation, gait abnormalities, or tremors. ENT: No hearing loss, otalgia, otorrhea, rhinitis, rhinorrhea, hoarseness, or sore throat. CARDIOVASCULAR: Denies any exertional angina, dyspnea on exertion, orthopnea, paroxysmal nocturnal dyspnea, palpitations, life-threatening arrhythmias, claudication. PULMONARY: Denies any shortness of breath, cough, phlegm/sputum, hemoptysis, pleuritic chest pain. SLEEP: Denies morning headaches, daytime somnolence or napping. Denies difficulty falling asleep, staying asleep, waking from sleep. Denies knowledge of snoring. GASTROINTESTINAL: Left lower quadrant abdominal pain, nausea, anorexia. No vomiting, diarrhea, constipation, hematochezia, or melena GENITOURINARY: Denies frequency, urgency, nocturia, hematuria or incontinence (Storage/Irritative symptoms.) Low urinary stream, straining to void, urinary intermittency or hesitancy, splitting of the voiding stream, terminal dribbling. ENDOCRINOLOGIC: Denies polyuria, polydipsia, polyphagia or heat/cold intolerances. HEMATOLOGIC: Denies thrombophilia/previous clots, or coagulopathy/bleeding disorders. ONCOLOGIC: Denies personal history of malignancy. DERMATOLOGIC: Denies rashes or pruritus. PSYCHIATRIC: Denies any suicidal or homicidal ideation. Denies hallucinations. PHYSICAL EXAM GENERAL APPEARANCE: The patient is awake, alert, and oriented, in no acute cardiopulmonary distress. NEUROLOGICAL: Cranial nerves II-XII grossly intact. Motor is 5/5 in bilateral upper and lower extremities proximal to distal. No sensory deficits. HEENT: Face is symmetric. Pupils are equal and reactive. Extraocular movements are intact. NECK: Supple. No JVD. No thyromegaly. No submental, submandibular, pre- /postauricular, occipital or supraclavicular lymphadenopathy. CHEST: Normal chest expansion. No Telemetry. LUNGS: Absence of any rales, rhonchi or any wheezing. CARDIOVASCULAR: Regular. S1 and S2 normal. No appreciable rubs, murmurs or gallops. ABDOMEN: Tenderness to palpation in the left lower quadrant, no rebound or guarding, no palpable masses, bowel sounds present : Deferred. No Arriaga. EXTREMITIES: Non-edematous and not cyanotic. No clubbing. Good capillary refill. SKIN: No skin breakdown. Vital Signs (last 8hr) Date Time Temp Pulse Resp B/P (MAP) Pulse Ox O2 Delivery O2 Flow Rate FiO2 09/10/25 08:10 98 Room Air* 0 21 09/10/25 07:51 97.9 67 18 99/57 98 Room Air 09/10/25 04:00 98.1 72 16 102/62 95 Room Air LABS: Laboratory: Test 09/09/25 10:07 09/08/25 13:30 Range/Units White Blood Count 10.5 4.8-10.8 K/uL Red Blood Count 4.66 4.50-6.20 MIL/uL Hemoglobin 13.9 L 14.0-18.0 g/dL Hematocrit 40.5 L 42-54 % Mean Corpuscular Volume 86.9 79-99 fL Mean Corpuscular Hemoglobin 29.8 27.0-33.0 pg Mean Corpuscular Hemoglobin Concent 34.3 32.0-36.0 g/dL Red Cell Distribution Width 11.7 11.0-15.5 % Platelet Count 335 # 130-400 K/uL Mean Platelet Volume 9.9 7.5-10.5 fL Nucleated Red Blood Cells 0.0 0.0-0.19 % Sodium Level 139 136-145 mmol/L Potassium Level 3.5 3.5-5.1 mmol/L Chloride Level 101 101-111 mmol/L Carbon Dioxide Level 24 21-32 mmol/L Blood Urea Nitrogen 8 7-18 mg/dL Creatinine 0.9 0.5-1.3 mg/dL Glomerular Filtration Rate Calc 119 >90 mL/min Random Glucose 85 70-105 mg/dL Total Calcium 8.7 8.5-10.1 mg/dL Vitamin D 25-Hydroxy 15.2 30.0-100.0 ng/mL Current Medications Medications (Trade) Dose Ordered Sig/Miguel Angel Route PRN Reason Start Time Stop Time Status Last Admin Dose Admin Acetaminophen (TYLenol 325MG TAB) 650 mg Q4H PRN PO TEMPERATURE GREATER THAN 101.5 09/06/25 15:00 10/06/25 14:59 Acetaminophen (TYLenol 325MG TAB) 650 mg Q6H PRN PO MILD PAIN (1-3) 09/06/25 15:00 10/06/25 14:59 Metronidazole/ Sodium Chloride 100 ml @ 100 mls/hr Q8H6 IVPB 09/06/25 22:00 09/06/25 14:46 DC Metronidazole/ Sodium Chloride 100 ml @ 100 mls/hr Q8H6 IVPB 09/07/25 14:00 09/07/25 13:21 DC Morphine Sulfate (morPHINE 4MG SYG) 2 mg Q4H PRN IVP SEVERE PAIN (7-10) 09/06/25 15:00 09/13/25 14:59 09/08/25 19:53 2 MG Ondansetron HCl (zoFRAN 4MG INJ) 4 mg Q6H PRN IVP NAUSEA/VOMITING 09/06/25 15:00 10/06/25 14:59 Piperacillin Sod/ Tazobactam Sod (Zosyn 3.375gm+NS 50ml) 3.375 gm ONCE STAT IVPB 09/06/25 14:00 09/06/25 14:03 DC 09/06/25 14:24 3.375 GM Piperacillin Sod/ Tazobactam Sod (Zosyn 3.375gm+NS 50ml) 3.375 gm Q8H IV 09/06/25 22:00 09/16/25 21:59 09/10/25 05:35 3.375 GM Sodium Chloride 1,000 ml @ 100 mls/hr Q10H IV 09/06/25 18:30 10/06/25 18:29 09/09/25 22:08 100 MLS/HR DIAGNOSTICS / RADIOLOGY: [ ] ASSESSMENT: Acute sigmoid diverticulitis, recurrent, POA Leukocytosis, POA Mild hyperglycemia, POA Pain, acute abdominal, POA Nausea/anorexia, POA Dehydration (presumed, given poor oral intake)< POA ] PLAN: [Admit to medical-surgical floorwill downgrade to CLD due to increase pain Continue IV fluids: Decrease Normal saline to 50 mL/hour IV antibiotics: Continue Zosyn; add Flagyl (metronidazole) per protocol Daily laboratory monitoring (CBC, BMP, glucose) Follow up with General surgery -conservative management -repeat CT in his we are going to Continue GI prophylaxis (e.g., PPI) Continue DVT prophylaxis (e.g., enoxaparin unless contraindicated), patient is young and ambulatory SCD we will suffice Monitor for clinical improvement or signs of complication (peritonitis, abscess, perforation) Continue clear liquid diet for now, Advance diet as tolerated once symptoms improve Patient is a full code Case discussed with the patient and nurse at bedside Attention time greater than 30 minute SARAHI RODRIGUEZ IV, MD Sep 10, 2025 10:01
--- NOTE | 2025-09-10 17:33 | PN ---
GENERAL SURGERY PROGRESS NOTE Date/Time Patient Seen: [ ] Interval History: [30-year-old male, admitted for diverticulitis, no abscess or perforation patient pain is better no n/v ate soup with carrots earlier Current Medications Medications (Trade) Dose Ordered Sig/Miguel Angel Route Start Time Stop Time Status Last Admin Dose Admin Metronidazole/ Sodium Chloride 100 ml @ 100 mls/hr Q8H6 IVPB 09/06/25 22:00 09/06/25 14:46 DC Metronidazole/ Sodium Chloride 100 ml @ 100 mls/hr Q8H6 IVPB 09/07/25 14:00 09/07/25 13:21 DC Piperacillin Sod/ Tazobactam Sod (Zosyn 3.375gm+NS 50ml) 3.375 gm ONCE STAT IVPB 09/06/25 14:00 09/06/25 14:03 DC 09/06/25 14:24 3.375 GM Piperacillin Sod/ Tazobactam Sod (Zosyn 3.375gm+NS 50ml) 3.375 gm Q8H IV 09/06/25 22:00 09/16/25 21:59 09/10/25 15:30 3.375 GM Sodium Chloride 1,000 ml @ 100 mls/hr Q10H IV 09/06/25 18:30 10/06/25 18:29 09/10/25 10:28 100 MLS/HR Physical Examination: GENERAL: [No acute distress.] HEAD: [Normal with no signs of head trauma.] EYES: [PERRLA, EOMI, conjunctiva and sclera normal.] ENT: [Hearing grossly intact, normal oropharynx.] NECK: [Supple without JVD. There is no tenderness, lymphadenopathy, or masses. No thyromegaly. Normal carotid upstrokes without bruits.] LUNGS: [Clear breath sounds bilaterally. There are right basilar rales one third of the way up the chest. No wheezes, or rhonchi.] HEART: [Normal rate and rhythm. Normal S1 and S2 without mumurs, gallop or rub.] VASC: [Peripheral pulses +2 bilaterally.] ABD: [Bowel sounds normal, soft, nontender, nondistended : [Not examined] LYMPH: [No lymphadenopathy noted.] EXT: [No clubbing, cyanosis or edema.] SKIN: [No rashes or lesions noted.] NEURO: [Awake, alert, and oriented x3. No focal sensory or strength deficits noted.] Vital Signs (last 8hr) Date Time Temp Pulse Resp B/P (MAP) Pulse Ox O2 Delivery O2 Flow Rate FiO2 09/10/25 16:22 97.9 80 18 110/72 99 Room Air 09/10/25 11:36 97.9 78 18 122/74 97 Room Air Laboratory: [ ] Hematology Labs: Test 09/09/25 10:07 Range/Units White Blood Count 10.5 4.8-10.8 K/uL Red Blood Count 4.66 4.50-6.20 MIL/uL Hemoglobin 13.9 L 14.0-18.0 g/dL Hematocrit 40.5 L 42-54 % Mean Corpuscular Volume 86.9 79-99 fL Mean Corpuscular Hemoglobin 29.8 27.0-33.0 pg Mean Corpuscular Hemoglobin Concent 34.3 32.0-36.0 g/dL Red Cell Distribution Width 11.7 11.0-15.5 % Platelet Count 335 # 130-400 K/uL Mean Platelet Volume 9.9 7.5-10.5 fL Nucleated Red Blood Cells 0.0 0.0-0.19 % Chemistry Labs: Test 09/09/25 10:07 Range/Units Sodium Level 139 136-145 mmol/L Potassium Level 3.5 3.5-5.1 mmol/L Chloride Level 101 101-111 mmol/L Carbon Dioxide Level 24 21-32 mmol/L Blood Urea Nitrogen 8 7-18 mg/dL Creatinine 0.9 0.5-1.3 mg/dL Glomerular Filtration Rate Calc 119 >90 mL/min Random Glucose 85 70-105 mg/dL Total Calcium 8.7 8.5-10.1 mg/dL Diagnostics / Radiology: [Copy/Paste Echos/Imaging Report here] Impression and Plan: [ 30-year-old male admitted for diverticulitis without abscess or perforation doing better clinically will advance to full liquids FRANKIE SHORE MD Sep 10, 2025 17:33
[2025-09-11 00:18] VITALS: BP 99/60; PULSE 79; RESP 16; TEMP 97.8
[2025-09-11 04:32] VITALS: BP 111/57; PULSE 83; RESP 16; TEMP 97.7
[2025-09-11 05:16] LABS: NUCLEATED RED BLOOD CELLS 0.0 % (0.0-0.19); PLATELET COUNT (AUTO) 333.0 K/uL (130-400); RED BLOOD CELL COUNT(AUTO) 4.14 MIL/uL (4.50-6.20); RED CELL DISTRIBUTION WIDTH 11.7 % (11.0-15.5); WHITE BLOOD COUNT (AUTO) 8.0 K/uL (4.8-10.8)
[2025-09-11 05:29] LABS: CREATININE 0.9 mg/dL (0.5-1.3); GLOMERULAR FILTR. RATE CALC 119.0 mL/min (>90); GLUCOSE,RANDOM 87.0 mg/dL (70-105); SODIUM SERUM 143.0 mmol/L (136-145); UREA NITROGEN, BLOOD 8.0 mg/dL (7-18)
[2025-09-11] MEDS: PoTASSium chloRIDE 20MEQ ER 20 MEQ ERTAB PO PRN (07:22)
[2025-09-11 07:34] VITALS: O2SAT 97
[2025-09-11 08:53] VITALS: BP 92/49; PULSE 73; RESP 16; TEMP 97.8
[2025-09-11 11:39] VITALS: BP 101/54; PULSE 65; RESP 18; TEMP 97.8
[2025-09-11 16:18] VITALS: BP 111/78; PULSE 85; RESP 16; TEMP 97.9
--- NOTE | 2025-09-11 17:54 | PN ---
GENERAL SURGERY PROGRESS NOTE Date/Time Patient Seen: [09/11/2025 17:30 ] Interval History: [30-year-old male, admitted for diverticulitis, no abscess or perforation Patient has been pain-free Tolerating GI soft diet without any nausea vomiting or worsening abdominal pain Patient has been passing gas and having normal bowel movements WBCs 8.0 H&H 12.2 and 35.2 Current Medications Medications (Trade) Dose Ordered Sig/Miguel Angel Route Start Time Stop Time Status Last Admin Dose Admin Metronidazole/ Sodium Chloride 100 ml @ 100 mls/hr Q8H6 IVPB 09/06/25 22:00 09/06/25 14:46 DC Metronidazole/ Sodium Chloride 100 ml @ 100 mls/hr Q8H6 IVPB 09/07/25 14:00 09/07/25 13:21 DC Piperacillin Sod/ Tazobactam Sod (Zosyn 3.375gm+NS 50ml) 3.375 gm ONCE STAT IVPB 09/06/25 14:00 09/06/25 14:03 DC 09/06/25 14:24 3.375 GM Piperacillin Sod/ Tazobactam Sod (Zosyn 3.375gm+NS 50ml) 3.375 gm Q8H IV 09/06/25 22:00 09/16/25 21:59 09/11/25 14:41 3.375 GM Sodium Chloride 1,000 ml @ 100 mls/hr Q10H IV 09/06/25 18:30 10/06/25 18:29 09/11/25 08:55 100 MLS/HR Physical Examination: GENERAL: [No acute distress,, male, comfortably sitting in bed, but they are at bedside.] HEAD: [Normocephalic.] EYES: [Normal conjunctiva.] ENT: [Hearing grossly intact] NECK: [Supple] LUNGS: [Clear breath sounds bilaterally.] HEART: [Normal rate and rhythm.] VASC: [Peripheral pulses +2 bilaterally.] ABD: [Bowel sounds normal, soft, nontender, no guarding or rigidity.] : [Not examined] EXT: [No edema.] SKIN: [No rashes or lesions noted.] NEURO: [Awake, alert, and oriented x3. No focal sensory or strength deficits noted.] Vital Signs (last 8hr) Date Time Temp Pulse Resp B/P (MAP) Pulse Ox O2 Delivery O2 Flow Rate FiO2 09/11/25 16:18 97.9 85 16 111/78 99 Room Air 0.0 09/11/25 11:39 97.9 65 18 101/54 97 Room Air Laboratory: [ ] Hematology Labs: Test 09/11/25 05:06 Range/Units White Blood Count 8.0 4.8-10.8 K/uL Red Blood Count 4.14 L 4.50-6.20 MIL/uL Hemoglobin 12.3 L 14.0-18.0 g/dL Hematocrit 35.2 L 42-54 % Mean Corpuscular Volume 85.0 79-99 fL Mean Corpuscular Hemoglobin 29.7 27.0-33.0 pg Mean Corpuscular Hemoglobin Concent 34.9 32.0-36.0 g/dL Red Cell Distribution Width 11.7 11.0-15.5 % Platelet Count 333 130-400 K/uL Mean Platelet Volume 10.3 7.5-10.5 fL Nucleated Red Blood Cells 0.0 0.0-0.19 % Chemistry Labs: Test 09/11/25 05:06 Range/Units Sodium Level 143 136-145 mmol/L Potassium Level 3.5 3.5-5.1 mmol/L Chloride Level 107 101-111 mmol/L Carbon Dioxide Level 26 21-32 mmol/L Blood Urea Nitrogen 8 7-18 mg/dL Creatinine 0.9 0.5-1.3 mg/dL Glomerular Filtration Rate Calc 119 >90 mL/min Random Glucose 87 70-105 mg/dL Total Calcium 8.3 L 8.5-10.1 mg/dL Diagnostics / Radiology: [Copy/Paste Echos/Imaging Report here] Impression and Plan: [ 30-year-old male admitted for diverticulitis without abscess or perforation From surgical standpoint, patient may be discharged home today on oral antibiotics, [id number] mg 1 p.o. b.i.d. for7 days Patient has already been instructed on strict diet to prevent diverticulitis flare-ups Office follow-up with Dr. Forrest in 2-3 weeks Patient is aware he will need a colonoscopy in about 6-8 weeks after completing oral antibiotics Patient and mother verbalized understanding well and agree with plan of care Dr. Forrest updated on patient's status Surgical case has been discussed with my supervising physician Plan of care was formulated and agreed upon We appreciate the hospitalist team for allowing us to participate in this patient's care Greater than 45 minutes spent examining patient, reviewing chart and working on documentation ATTESTATION BY PHYSICIAN ATTESTATION BY PHYSICIAN I have seen and examined the patient. I reviewed the documentation, medical decision making, and treatment plan as noted by the mid-level provider above. I agree with the findings and plan of care. MD RODRICK SCHMITZ LETICIA A [facility] Sep 11, 2025 17:54
[2025-09-11] MEDS ORDERED: LACT1CAP80 PO (17:57)
[2025-09-11] MEDS ORDERED: AMOX1TAB16 PO (17:57)
--- NOTE | 2025-09-11 19:13 | DS ---
Discharge Summary Hospital Course Summary: The patient is a 30-year-old male with a past medical history significant for diverticulitis, previously admitted to [facility] last month. He reports completing his prescribed antibiotic course after discharge. Approximately five days ago, he began experiencing recurrent abdominal pain localized to the left lower quadrant. Despite ongoing symptoms, he continued working due to financial constraints. Today, the pain became intolerable, prompting his visit to the emergency department. Associated symptoms include nausea (without vomiting) and anorexia. He denies fever, chills, diarrhea, constipation, hematochezia, or melena. 09/07 [30-year-old male who presented to the emergency department with severe abdominal pain. Patient was diagnosed with a sigmoid diverticulitis by CT. Patient was evaluated this morning and he complained of still tenderness to the abdomen. Pain is reduced. We will await for further recommendations from general surgeon. Patient will continue NPO status. Continue with IV fluids and IV antibiotics. WBC downtrending. ] 09/08 WBC downtrending. ] 09/09 We will await for further recommendations from general surgeon. Patient reported increase pain on current diet, We will downgrade to CLD again if it continues he will need tp be NPO. 09/10 patient has been evaluated by surgery with recommendations for conservative management. Also recommended repeat CT during the weekend. Appreciate assistance 09/11 the patient's pain improved improved and diet was advanced. Final General Surgery Recommendations: * From surgical standpoint, patient may be discharged home today on oral antibiotics, [id number] mg 1 p.o. b.i.d. for7 days * Patient has already been instructed on strict diet to prevent diverticulitis flare-ups * Office follow-up with Dr. Forrest in 2-3 weeks * Patient is aware he will need a colonoscopy in about 6-8 weeks after completing oral antibiotics The decision was made to discharge the patient to Follow up with PCP and surgery. Medications as per med rec. Assessment/Plan: ASSESSMENT: Acute sigmoid diverticulitis, recurrent, POA Leukocytosis, POA Mild hyperglycemia, POA Pain, acute abdominal, POA Nausea/anorexia, POA Dehydration (presumed, given poor oral intake)< POA ] PLAN: [Admit to medical-surgical floorwill downgrade to CLD due to increase pain Continue IV fluids: Decrease Normal saline to 50 mL/hour IV antibiotics: Continue Zosyn; add Flagyl (metronidazole) per protocol Daily laboratory monitoring (CBC, BMP, glucose) Follow up with General surgery -conservative management -repeat CT in his we are going to Continue GI prophylaxis (e.g., PPI) Continue DVT prophylaxis (e.g., enoxaparin unless contraindicated), patient is young and ambulatory SCD we will suffice Monitor for clinical improvement or signs of complication (peritonitis, abscess, perforation) Continue clear liquid diet for now, Advance diet as tolerated once symptoms improve Patient is a full code Case discussed with the patient and nurse at bedside Attention time greater than 30 minute Home Medications: Active Scripts Lactobacillus Combo No.10 (Probiotic) 20 Billion Cell Capsule, 1 TAB PO DAILY for 30 Days, #30 TAB 0 Refills Prov:LUNA MENSAH [employer] 09/11/25 Amoxicillin/Potassium Clav (Amox Tr-K Clv 875-125 mg Tab) 875 Mg-125 Mg Tablet, 1 TAB PO BID for 7 Days, #14 TAB 0 Refills Prov:LUNA MENSAH [employer] 09/11/25 Time spent arranging discharge: 31-60 minutes SARAHI RODRIGUEZ IV, MD Sep 11, 2025 19:13
--- NOTE | 2025-09-11 19:50 | NUR ---
DISCHARGE PATIENT WAS GIVEN DISCHARGE INSTRUCTIONS AND ALL QUESTIONS WERE ANSWERED. IV WAS REMOVED. PATIENT TAKEN TO VEHICLE VIA WHEELCHAIR.
== END 2025-09-11 20:00 | disposition home or self-care (01) | DRG 392 ==
LOC: EDH 12:03 → EDHIP 12:04 → 1MS 18:00
PROVIDERS: ADMIT Hospitalist; ATTEND Hospitalist
DX: K57.32 Diverticulitis of large intestine without perforation or abscess without bleeding (principal); Z68.41 Body mass index [BMI] 40.0-44.9, adult; E86.0 Dehydration; R73.9 Hyperglycemia, unspecified; E66.01 Morbid (severe) obesity due to excess calories; F19.90 Other psychoactive substance use, unspecified, uncomplicated; Z82.49 Family history of ischemic heart disease and other diseases of the circulatory system
CPT/HCPCS: 36415; 74177; 80048; 80053; 80061; 81001; 82306; 82607; 83036; 83605; 83690; 85025; 85027; 85651; 86140; 87040; 96365; 96375; 99285; J1171; J2270; J2405; J2543; J7030; Q9967